=== PATIENT | male | born 1955 | race Caucasian/White ===

== ENCOUNTER 2017-07-12 09:57 | Emergency (ER) | payer MEDICARE, MEDICAID ==
[~2017-07-12] VITALS: Ht 172.7 cm; Wt 90.7 kg
[~2017-07-12 09:57] MED LIST: ALBU8.5H8 INH; BENA20TA2 PO; HYDR25TA4 PO; INSU100V10 SQ; INSU100V3 SQ; METF500T PO; RIVA10TA PO; SITA50TA PO
[2017-07-12 10:54] LABS: BASOPHILS # (AUTO) 0.1 /CMM (0.0-0.2); BASOPHILS % (AUTO) 0.8 % (0.0-2.0); EOSINOPHILS # (AUTO) 0.3 /CMM (0.0-0.7); EOSINOPHILS % (AUTO) 3.2 % (0.0-6.0); HEMATOCRIT 37 % (39-51); HEMOGLOBIN 12.5 g/dL (13.5-17.5); LYMPHOCYTES # (AUTO) 1.3 /CMM (0.8-4.8); LYMPHOCYTES % (AUTO) 16.3 % (20.0-44.0); MEAN CORPUSCULAR HEMOGLOBIN 30 PG (26.0-33.0); MEAN CORPUSCULAR HGB CONC 34 g/dl (31.0-36.0); MEAN CORPUSCULAR VOLUME 90 fL (80-96); MONOCYTES # (AUTO) 0.8 /CMM (0.1-1.30); MONOCYTES % (AUTO) 9.6 % (2.0-12.0); NEUTROPHILS # (AUTO) 5.4 /CMM (1.8-8.9); NEUTROPHILS % (AUTO) 70.1 % (43.0-81.0); PLATELET COUNT (AUTO) 231 /CMM (150-450); RDW COEFFICIENT OF VARIATION 12.5 (11.5-15.0); RED BLOOD CELL COUNT(AUTO) 4.11 MIL/uL (4.5-6.0); WHITE BLOOD COUNT (AUTO) 7.9 K/uL (4.3-11.0)
[2017-07-12 11:03] LABS: CALCIUM, SERUM 9.3 mg/dL (8.5-10.1); CARBON DIOXIDE 26 mmol/L (21-32); CHLORIDE 104 mmol/L (98-107); CREATININE 1.3 mg/dL (0.6-1.3); GLUCOSE 91 mg/dL (74-106); POTASSIUM 3.7 mmol/L (3.5-5.1); SODIUM SERUM 139 mmol/L (136-145); UREA NITROGEN, BLOOD 17 mg/dL (7-18)
[2017-07-12 11:09] LABS: ACETAMINOPHEN 0 ug/ml (10-30); ALANINE AMINOTRANSFERASE 22 U/L (12-78); ALBUMIN 4.3 g/dL (3.4-5.0); ALCOHOL, BLOOD < 3 mg/dL (0-0); ALKALINE PHOSPHATASE 83 U/L (46-116); ASPARTATE AMINOTRANSFERASE 25 U/L (15-37); BILIRUBIN,DIRECT 0.2 mg/dL (0.0-0.2); BILIRUBIN,TOTAL 0.6 mg/dL (0.2-1.0); SALICYLATE 1.9 mg/dL (2.8-20.0)
[2017-07-12 11:13] LABS: APPEARANCE,URINE Clear (CLEAR); BILIRUBIN,URINE Negative (NEGATIVE); BLOOD, URINE Trace-intact Ery/uL (NEGATIVE); COLOR,URINE Yellow (YELLOW); KETONES,URINE Negative (NEGATIVE); LEUKOCYTE ESTERASE ,URINE Negative (NEGATIVE); NITRITE, URINE Negative (NEGATIVE); PH,URINE 5.5 (5.0-8.0); PROTEIN,URINE Negative (NEGATIVE); UGLUCOSE Negative (NEGATIVE); UROBILINOGEN,URINE 0.2 EU/dL (0.2)
[2017-07-12 11:20] LABS: BACTERIA,URINE None seen /HPF (None Seen); SQUAMOUS EPITHELIAL CELL,UR Few /HPF (None Seen); WBC,URINE 0-2 /HPF (0-3)
--- NOTE | 2017-07-12 11:20 | NUR ---
FOR PSYCH EVALUATION, DENIES SI/HI, DENIES AUDITORY OR VISUAL, HALLUCINATION, NAD NOTED, VSS, RESP EVEN AND UNLABORED. WAITING FOR CRISIS NURSE EVAL.
--- NOTE | 2017-07-12 11:51 | NUR ---
MARGRET WAS CALLED AT 1150 FOR PSYCH EVAL
[2017-07-12] MEDS ORDERED: diphenhydrAMINE HCL 50 MG/ML VIAL IV ONE (12:00)
[2017-07-12] MEDS ORDERED: diphenhydrAMINE HCL 50 MG CAPSULE ONE (12:06)
--- NOTE | 2017-07-12 13:30 | NUR ---
CONTACT NUMBER FOR SISTER, ABILIO DURHAM ( )
[2017-07-12 15:06] VITALS: BP 135/70
--- NOTE | 2017-07-12 15:07 | NUR ---
Patient discharged to home in stable condition. Written and verbal after care instructions given. Patient verbalizes understanding of instruction.
== END 2017-07-12 15:10 | disposition home or self-care (01) ==
LOC: ER 10:03
DX: F31.9 Bipolar disorder, unspecified (principal); E11.9 Type 2 diabetes mellitus without complications; I10 Essential (primary) hypertension; Z79.4 Long term (current) use of insulin; Z85.038 Personal history of other malignant neoplasm of large intestine; Z88.8 Allergy status to other drugs, medicaments and biological substances
CPT/HCPCS: 36415; 80048; 80076; 80305; 80329; 81001; 85025; 99284; A4606; G0480 ×2; Q0163; 81000-TC; Z7610

== ENCOUNTER 2018-06-13 18:20 | Emergency (ER) | payer MEDICAID, MEDICARE, OTHER ==
[~2018-06-13] VITALS: Ht 172.7 cm; Wt 94.8 kg
[2018-06-13 18:20] VITALS: BP 137/70
[~2018-06-13 18:20] MED LIST changes: -BENA20TA2 PO; +BENA20TA9 PO
== END 2018-06-13 20:58 | disposition home or self-care (01) ==
LOC: ER 18:21
DX: J40 Bronchitis, not specified as acute or chronic (principal); F41.9 Anxiety disorder, unspecified; I10 Essential (primary) hypertension; E11.9 Type 2 diabetes mellitus without complications; Z76.0 Encounter for issue of repeat prescription; Z86.718 Personal history of other venous thrombosis and embolism; Z85.038 Personal history of other malignant neoplasm of large intestine; Z87.891 Personal history of nicotine dependence; Z88.3 Allergy status to other anti-infective agents; Z79.4 Long term (current) use of insulin
CPT/HCPCS: 99284; A4606

== ENCOUNTER 2018-07-04 18:13 | Emergency (ER) | payer MEDICARE, OTHER ==
[~2018-07-04] VITALS: Ht 167.6 cm; Wt 96.2 kg
[2018-07-04 18:19] VITALS: BP 140/71
== END 2018-07-04 19:41 | disposition home or self-care (01) ==
LOC: ER 18:14
DX: J44.9 Chronic obstructive pulmonary disease, unspecified (principal); I10 Essential (primary) hypertension; E11.9 Type 2 diabetes mellitus without complications; R45.1 Restlessness and agitation; F17.200 Nicotine dependence, unspecified, uncomplicated; Z76.0 Encounter for issue of repeat prescription; Z85.038 Personal history of other malignant neoplasm of large intestine; Z88.8 Allergy status to other drugs, medicaments and biological substances; Z79.4 Long term (current) use of insulin
CPT/HCPCS: 71046; 99283; A4606

== ENCOUNTER 2018-08-12 12:43 | Inpatient (IN) | payer MEDICARE, MEDICAID ==
[~2018-08-12] VITALS: Ht 170.2 cm; Wt 104.3 kg
[2018-08-12] MEDS ORDERED: SENN-168 PO (12:58)
[2018-08-12] MEDS ORDERED: ACET-2605 PO (12:58)
[2018-08-12] MEDS ORDERED: NA P133E RC (12:58)
[2018-08-12] MEDS ORDERED: OMEP40CA37 PO (12:58)
[2018-08-12] MEDS ORDERED: METO-295 PO (12:58)
[2018-08-12] MEDS ORDERED: TOPI50TA24 PO (12:58)
[2018-08-12] MEDS ORDERED: ATOR40TA PO (12:58)
[2018-08-12] MEDS ORDERED: GABA-534 PO (12:58)
[2018-08-12] MEDS ORDERED: DIPH25CA6 PO (12:58)
[2018-08-12] MEDS ORDERED: BLOO-668 IN (12:58)
[2018-08-12] MEDS ORDERED: ACET-868 PO (12:58)
[2018-08-12] MEDS ORDERED: NIAC500T2 PO (12:58)
[2018-08-12] MEDS ORDERED: AMLO5TAB9 PO (12:58)
[2018-08-12] MEDS ORDERED: BISA10SU8 RC (12:58)
[2018-08-12] MEDS ORDERED: ASPIRIN 81 MG TAB.CHEW PO ONE (13:00)
[2018-08-12] MEDS ORDERED: ASPIRIN 81 MG TAB.CHEW ONE (13:01)
[2018-08-12 13:11] LABS: BASOPHILS % (AUTO) 0.3 % (0.0-2.0); EOSINOPHILS % (AUTO) 4.2 % (0.0-6.0); HEMATOCRIT 38 % (39-51); HEMOGLOBIN 12.8 g/dL (13.5-17.5); LYMPHOCYTES # (AUTO) 1.6 /CMM (0.8-4.8); MEAN CORPUSCULAR HGB CONC 34 g/dl (31.0-36.0); MEAN CORPUSCULAR VOLUME 89 fL (80-96); MONOCYTES # (AUTO) 0.7 /CMM (0.1-1.30); MONOCYTES % (AUTO) 8.6 % (2.0-12.0); NEUTROPHILS # (AUTO) 5.3 /CMM (1.8-8.9); NEUTROPHILS % (AUTO) 66.9 % (43.0-81.0); PLATELET COUNT (AUTO) 206 /CMM (150-450); RED BLOOD CELL COUNT(AUTO) 4.23 MIL/uL (4.5-6.0)
[2018-08-12 13:20] LABS: CALCIUM, SERUM 9.9 mg/dL (8.5-10.1); CARBON DIOXIDE 23 mmol/L (21-32); CHLORIDE 105 mmol/L (98-107); CREATININE 1.3 mg/dL (0.6-1.3); GLUCOSE 100 mg/dL (74-106); POTASSIUM 3.6 mmol/L (3.5-5.1); SODIUM SERUM 141 mmol/L (136-145); UREA NITROGEN, BLOOD 15 mg/dL (7-18)
[2018-08-12 13:39] LABS: ALANINE AMINOTRANSFERASE 33 U/L (12-78); ALBUMIN 4.4 g/dL (3.4-5.0); ALKALINE PHOSPHATASE 104 U/L (46-116); ASPARTATE AMINOTRANSFERASE 22 U/L (15-37); BILIRUBIN,DIRECT 0.2 mg/dL (0.0-0.2); BILIRUBIN,TOTAL 0.6 mg/dL (0.2-1.0); TOTAL PROTEIN, SERUM 7.6 g/dL (6.4-8.2)
[2018-08-12] MEDS ORDERED: MAG HYDROX/AL HYDROX/SIMETH 30 ML UDC PO PRN (15:30)
[2018-08-12] MEDS ORDERED: HYDROCODONE/APAP 5/325MG 1 EACH TABLET PO PRN (15:30)
[2018-08-12] MEDS ORDERED: Z GUARD REMEDY 2 OZ OINT TP PRN (15:30)
[2018-08-12] MEDS ORDERED: NA PHOS,M-B/NA PHOS,DI-BA 1 EA ENEMA RC PRN (15:30)
[2018-08-12] MEDS ORDERED: ACETAMINOPHEN 325 MG TABLET PO PRN (15:30)
[2018-08-12] MEDS ORDERED: MAGNESIUM HYDROXIDE 30 ML UDC PO PRN (15:30)
[2018-08-12] MEDS ORDERED: ZOLPIDEM TARTRATE 5 MG TABLET PO PRN (15:30)
[2018-08-12] MEDS ORDERED: BISACODYL SUPP (10 MG) 10 MG/SUPP.RECT SUPP.RECT RC PRN (15:30)
[2018-08-12] MEDS ORDERED: ONDANSETRON HCL/PF 4 MG/2 ML VIAL IVP PRN (15:30)
[2018-08-12 15:44] VITALS: BP 123/77
[2018-08-12] MEDS: IV NS 0.9% 1,000 ML IV PRN (15:59)
[2018-08-12] MEDS ORDERED: GABAPENTIN 300 MG CAPSULE PO SCH (17:00)
[2018-08-12] MEDS: METOCLOPRAMIDE HCL 10 MG TABLET PO SCH ×2 (17:30→21:26)
[2018-08-12] MEDS: TOPIRAMATE 25 MG TABLET PO SCH (17:54)
[2018-08-12] MEDS: RIVAROXABAN 10 MG TABLET PO SCH (17:56)
[2018-08-12] MEDS: TRAMADOL HCL 50 MG TABLET PO PRN (18:50)
[2018-08-12] MEDS ORDERED: MINERAL OIL/PETROL OINT 396 GM JAR TP PRN (19:00)
[2018-08-12] MEDS ORDERED: DEXTROSE 50%-WATER 50 ML DISP.SYRIN IV PRN (19:00)
[2018-08-12] MEDS: LITHIUM CARBONATE 150 MG CAPSULE PO SCH (19:00)
[2018-08-12] MEDS: BLOOD SUGAR DIAGNOSTIC 1 EACH STRIP VI SCH ×2 (19:00→21:29)
[2018-08-12] MEDS: OXCARBAZEPINE 150 MG TABLET PO SCH (19:13)
[2018-08-12] MEDS: LamoTRIgine 25 MG TABLET PO SCH ×2 (19:13→21:24)
[2018-08-12 20:00] VITALS: BP 128/78
[2018-08-12] MEDS: ATORVASTATIN 40 MG TABLET PO SCH (21:24)
[2018-08-12] MEDS: OLANZAPINE 10 MG TABLET PO SCH (21:25)
[2018-08-12] MEDS: SENNOSIDES 8.6 MG TABLET PO SCH (21:26)
[2018-08-12] MEDS: *INSULIN REGULAR(HUMULIN R)HUM 100 UNIT/ML VIAL SQ PRN (21:34)
[2018-08-13] VITALS: BP 120/83
[2018-08-13 03:30] VITALS: BP 147/71
[2018-08-13] MEDS: IV NS 0.9% 1,000 ML IV PRN (04:42)
[2018-08-13] MEDS: INSULIN REGULAR, HUMAN 100 UNIT/ML 3 ML VIAL SQ PRN (06:34)
[2018-08-13] MEDS: BLOOD SUGAR DIAGNOSTIC 1 EACH STRIP VI SCH ×4 (06:35→21:50)
[2018-08-13] MEDS: TRAMADOL HCL 50 MG TABLET PO PRN ×2 (07:08→16:48)
[2018-08-13 07:45] LABS: BASOPHILS % (AUTO) 0.4 % (0.0-2.0); EOSINOPHILS % (AUTO) 7.8 % (0.0-6.0); HEMATOCRIT 38 % (39-51); HEMOGLOBIN 12.7 g/dL (13.5-17.5); LYMPHOCYTES % (AUTO) 23.6 % (20.0-44.0); MEAN CORPUSCULAR HGB CONC 34 g/dl (31.0-36.0); MEAN CORPUSCULAR VOLUME 91 fL (80-96); MONOCYTES % (AUTO) 10.1 % (2.0-12.0); NEUTROPHILS # (AUTO) 2.9 /CMM (1.8-8.9); NEUTROPHILS % (AUTO) 58.1 % (43.0-81.0); PLATELET COUNT (AUTO) 183 /CMM (150-450); RED BLOOD CELL COUNT(AUTO) 4.16 MIL/uL (4.5-6.0)
[2018-08-13 07:46] LABS: LYMPHOCYTES # (AUTO) 1.2 /CMM (0.8-4.8); MONOCYTES # (AUTO) 0.5 /CMM (0.1-1.30)
[2018-08-13 07:59] LABS: CALCIUM, SERUM 9.4 mg/dL (8.5-10.1); CREATININE 1.4 mg/dL (0.6-1.3); PHOSPHORUS 3.7 mg/dL (2.5-4.9); POTASSIUM 3.6 mmol/L (3.5-5.1)
[2018-08-13 08:00] VITALS: BP 120/73
[2018-08-13] MEDS: ASPIRIN 81 MG TAB.CHEW PO SCH (08:50)
[2018-08-13] MEDS: AMLODIPINE BESYLATE 5 MG TABLET PO SCH (08:50)
[2018-08-13] MEDS: METFORMIN 500 MG TABLET PO SCH ×2 (08:50→16:39)
[2018-08-13] MEDS: TOPIRAMATE 25 MG TABLET PO SCH ×2 (08:51→16:39)
[2018-08-13] MEDS: PANTOPRAZOLE 40 MG TABLET.DR PO SCH (08:51)
[2018-08-13] MEDS: OXCARBAZEPINE 150 MG TABLET PO SCH ×2 (08:51→16:39)
[2018-08-13] MEDS: METOCLOPRAMIDE HCL 10 MG TABLET PO SCH ×4 (08:51→21:40)
[2018-08-13] MEDS: LamoTRIgine 25 MG TABLET PO SCH ×2 (08:51→21:40)
[2018-08-13] MEDS: LITHIUM CARBONATE 150 MG CAPSULE PO SCH (08:51)
[2018-08-13] MEDS: GABAPENTIN 400 MG CAPSULE PO SCH ×3 (08:51→16:44)
[2018-08-13] MEDS: CITALOPRAM HYDROBROMIDE 20 MG TABLET PO SCH (08:53)
[2018-08-13] MEDS ORDERED: METFORMIN 500 MG TABLET PO SCH (09:00)
[2018-08-13] MEDS: diphenhydrAMINE HCL 25 MG CAPSULE PO PRN (14:02)
[2018-08-13 16:00] VITALS: BP 120/69
[2018-08-13] MEDS: RIVAROXABAN 10 MG TABLET PO SCH (16:43)
[2018-08-13] MEDS ORDERED: LITHIUM CARBONATE (300 MG CAP) 300 MG CAPSULE PO SCH (18:00)
[2018-08-13] MEDS ORDERED: IOHEXOL-350 100 ML VIAL IV ONE (19:21)
[2018-08-13] MEDS ORDERED: CT SWABBABLE VALVE TRANS SET 1 EA INFUS.SET MC ONE (19:21)
[2018-08-13] MEDS ORDERED: IV NS 0.9% 250 ML IV ONE (19:21)
[2018-08-13 20:00] VITALS: BP 115/61
[2018-08-13] MEDS: OLANZAPINE 10 MG TABLET PO SCH (21:40)
[2018-08-13] MEDS: ATORVASTATIN 40 MG TABLET PO SCH (21:40)
[2018-08-13] MEDS: SENNOSIDES 8.6 MG TABLET PO SCH ×2 (21:40→21:58)
[2018-08-13] MEDS: *INSULIN REGULAR(HUMULIN R)HUM 100 UNIT/ML VIAL SQ PRN (21:57)
[2018-08-14] MEDS: TRAMADOL HCL 50 MG TABLET PO PRN ×2 (03:50→09:43)
[2018-08-14] MEDS: BLOOD SUGAR DIAGNOSTIC 1 EACH STRIP VI SCH ×2 (06:33→12:06)
[2018-08-14] MEDS: INSULIN REGULAR, HUMAN 100 UNIT/ML 3 ML VIAL SQ PRN (06:35)
[2018-08-14] MEDS: METOCLOPRAMIDE HCL 10 MG TABLET PO SCH ×2 (07:30→12:00)
[2018-08-14 07:42] LABS: CALCIUM, SERUM 9.7 mg/dL (8.5-10.1); CREATININE 1.2 mg/dL (0.6-1.3); PHOSPHORUS 4.6 mg/dL (2.5-4.9); POTASSIUM 4.5 mmol/L (3.5-5.1)
[2018-08-14 08:00] VITALS: BP 158/77
[2018-08-14] MEDS: LITHIUM CARBONATE 150 MG CAPSULE PO SCH (09:00)
[2018-08-14 09:28] VITALS: BP 158/77
[2018-08-14] MEDS: LamoTRIgine 25 MG TABLET PO SCH (09:28)
[2018-08-14] MEDS: GABAPENTIN 400 MG CAPSULE PO SCH ×2 (09:28→13:30)
[2018-08-14] MEDS: CITALOPRAM HYDROBROMIDE 20 MG TABLET PO SCH (09:28)
[2018-08-14] MEDS: ASPIRIN 81 MG TAB.CHEW PO SCH (09:28)
[2018-08-14] MEDS: PANTOPRAZOLE 40 MG TABLET.DR PO SCH (09:28)
[2018-08-14] MEDS: AMLODIPINE BESYLATE 5 MG TABLET PO SCH (09:28)
[2018-08-14] MEDS: METFORMIN 500 MG TABLET PO SCH (09:29)
[2018-08-14] MEDS: OXCARBAZEPINE 150 MG TABLET PO SCH (09:29)
[2018-08-14] MEDS: TOPIRAMATE 25 MG TABLET PO SCH (09:30)
[2018-08-14] MEDS: diphenhydrAMINE HCL 25 MG CAPSULE PO PRN (09:36)
== END 2018-08-14 15:30 | DRG 205 ==
LOC: ER 13:13 → TELE1 14:35 → TELE 08-13 03:22 → MED 08-13 13:04
PROVIDERS: ADMIT Internal Medicine; ATTEND Nurse Practitioner Acute Care
DX: M94.0 Chondrocostal junction syndrome [Tietze] (principal); N17.0 Acute kidney failure with tubular necrosis; I25.10 Atherosclerotic heart disease of native coronary artery without angina pectoris; F31.9 Bipolar disorder, unspecified; I10 Essential (primary) hypertension; K21.9 Gastro-esophageal reflux disease without esophagitis; E11.43 Type 2 diabetes mellitus with diabetic autonomic (poly)neuropathy; K31.84 Gastroparesis; L85.3 Xerosis cutis; E78.5 Hyperlipidemia, unspecified; I71.2 Thoracic aortic aneurysm, without rupture; Z86.718 Personal history of other venous thrombosis and embolism; Z79.01 Long term (current) use of anticoagulants; F17.200 Nicotine dependence, unspecified, uncomplicated; N40.0 Benign prostatic hyperplasia without lower urinary tract symptoms; W06.XXXA Fall from bed, initial encounter; Y92.122 Bedroom in nursing home as the place of occurrence of the external cause; Z79.4 Long term (current) use of insulin; Z79.899 Other long term (current) drug therapy; Z85.038 Personal history of other malignant neoplasm of large intestine
CPT/HCPCS: 36415; 71045-TC; 71100-TC; 80048-TC; 80076-TC; 82962-TC; 83735-TC; 84100-TC; 84484-TC; 85025-TC; 87081-TC; 93307-TC; G0378; J1815; J7030; J7050; J8597; Q0163; Q9967

== ENCOUNTER 2018-08-25 19:55 | Inpatient (IN) | payer MEDICARE, MEDICAID ==
[~2018-08-25] VITALS: Ht 172.7 cm; Wt 99.8 kg
[~2018-08-25 19:55] MED LIST changes: +ACET-2605 PO; +ACET-868 PO; -ALBU8.5H8 INH; +AMLO5TAB9 PO; +ATOR40TA PO; -BENA20TA9 PO; +BISA10SU8 RC; +BLOO-668 IN; +DIPH25CA6 PO; +GABA-534 PO; -HYDR25TA4 PO; -INSU100V10 SQ; -INSU100V3 SQ; +METO-295 PO; +NA P133E RC; +NIAC500T2 PO; +OMEP40CA37 PO; +SENN-168 PO; -SITA50TA PO; +TOPI50TA24 PO
[2018-08-25 21:28] LABS: BASOPHILS # (AUTO) 0.1 /CMM (0.0-0.2); BASOPHILS % (AUTO) 0.7 % (0.0-2.0); EOSINOPHILS % (AUTO) 5.3 % (0.0-6.0); HEMATOCRIT 35 % (39-51); HEMOGLOBIN 11.9 g/dL (13.5-17.5); LYMPHOCYTES % (AUTO) 25.6 % (20.0-44.0); MEAN CORPUSCULAR HGB CONC 34 g/dl (31.0-36.0); MEAN CORPUSCULAR VOLUME 89 fL (80-96); MONOCYTES # (AUTO) 0.8 /CMM (0.1-1.30); MONOCYTES % (AUTO) 9.9 % (2.0-12.0); NEUTROPHILS # (AUTO) 4.6 /CMM (1.8-8.9); NEUTROPHILS % (AUTO) 58.5 % (43.0-81.0); PLATELET COUNT (AUTO) 234 /CMM (150-450); RED BLOOD CELL COUNT(AUTO) 3.94 MIL/uL (4.5-6.0); WHITE BLOOD COUNT (AUTO) 7.9 K/uL (4.3-11.0)
--- NOTE | 2018-08-25 21:30 | NUR ---
PT PRESENTED TO THE ER WITH A C/O MEDICATION SIDE EFFECTS. PT STATED THAT HE FEELS MENTALLY UNSTABLE ON THE NEW MEDICAITON THAT HE IS TAKING. PT IS AA&O X4.
[2018-08-25 21:37] LABS: ALBUMIN 4.3 g/dL (3.4-5.0); BILIRUBIN,DIRECT 0.1 mg/dL (0.0-0.2); BILIRUBIN,TOTAL 0.5 mg/dL (0.2-1.0); CALCIUM, SERUM 8.9 mg/dL (8.5-10.1); CREATININE 1.1 mg/dL (0.6-1.3); POTASSIUM 3.6 mmol/L (3.5-5.1); SALICYLATE 0.5 mg/dL (2.8-20.0); TOTAL PROTEIN, SERUM 7.2 g/dL (6.4-8.2)
--- NOTE | 2018-08-25 21:42 | NUR ---
PT IS TRYING TO GIVE A URINE SAMPLE.
--- NOTE | 2018-08-25 21:45 | NUR ---
URINE SENT TO LAB.
[2018-08-25 23:40] LABS: APPEARANCE,URINE CLEAR (CLEAR); BILIRUBIN,URINE NEGATIVE (NEGATIVE); BLOOD, URINE TRACE-INTA Ery/uL (NEGATIVE); COLOR,URINE OTHER (YELLOW); KETONES,URINE NEGATIVE (NEGATIVE); LEUKOCYTE ESTERASE ,URINE NEGATIVE (NEGATIVE); NITRITE, URINE NEGATIVE (NEGATIVE); PROTEIN,URINE NEGATIVE (NEGATIVE); UGLUCOSE NEGATIVE (NEGATIVE); UROBILINOGEN,URINE 0.2 EU/dL (0.2)
[2018-08-25 23:55] LABS: BACTERIA,URINE Rare /HPF (None Seen); RBC,URINE 0-2 /HPF (0-2); SQUAMOUS EPITHELIAL CELL,UR Rare /HPF (None Seen); WBC,URINE 0-2 /HPF (0-3)
--- NOTE | 2018-08-26 00:55 | NUR ---
PT REC'D A SANDWICH AND A DIET COKE. PT IS TOLERATING PO WELL.
--- NOTE | 2018-08-26 02:55 | NUR ---
PT EVALUATED BY MILLICENT HALL.
--- NOTE | 2018-08-26 03:00 | NUR ---
PT IS ON A 6070 HOLD
--- NOTE | 2018-08-26 03:34 | NUR ---
CALLING REPORT TO SHAYLA CEE
[2018-08-26] MEDS ORDERED: TEMAZEPAM 7.5 MG CAPSULE PO PRN (05:00)
[2018-08-26] MEDS ORDERED: MAG HYDROX/AL HYDROX/SIMETH 30 ML UDC PO PRN (05:00)
[2018-08-26] MEDS ORDERED: MAGNESIUM HYDROXIDE 30 ML UDC PO PRN (05:00)
[2018-08-26] MEDS ORDERED: ACETAMINOPHEN 325 MG TABLET PO PRN (05:00)
--- NOTE | 2018-08-26 05:27 | NUR ---
GPS/GANG PLANK WORKMAN NOTE: A 63 YEAR OLD MALE ADMITTED FROM [facility] ON 5150 HOLD FOR DTS. PER HOLD, PATIENT REPORTED FEELING UNSAFE DUE TO SIDE EFFECTS FROM MEDICATION. HE IS FEELING UNSAFE EXPERIENCING SOME DELUSIONS THAT PEOPLE MAYBE OUT TO HURT HIM, HE BELIEVES TO BE RELATED TO MEDICATION CHANGE. FEELS ABOUT HIS SAFETY AND DOES NOT FEEL HE CAN BE SAFE ON HIS OWN. PLACED HIM IN BED, AWAKE, ALERT, ORIENTED X3-4, THOUGHT PROCESS INTACT, NO APPARENT DISTRESS NOTED. PATIENT STATED MAYTE HE IS ANGRY, IRRITABLE, PARANOID AND DELUSIONAL. SKIN CLEAR. PATIENT IS CLEAN, GOOD HYGIENE, APPROPRIATE, COOPERATIVE, CALM, SHOWS NO S/S OF ANY PAIN. LIVES ALONE. BELONGINGS INVENTORIED AND CHECKED FOR CONTRABAND. PATIENT REFUSED TO SIGN CONSENT. SPOKE TO YARA, MED RECON NEEDS TO BE DONE IN THE MORNING. SISTER ABILIO [phone] NOTIFIED OF ADMISSION. BED LOCKED AND PLACED ON LOWEST POSITION. WILL CONTINUE TO MONITOR Q 15 MINS. TO MAINTAIN SAFETY. MRSA SCREEN DONE IN ER.
--- NOTE | 2018-08-26 06:22 | NUR ---
CALLED ABILIO, (SISTER) [phone], NO ANSWER, PLEASE CALL LATER.
--- NOTE | 2018-08-26 06:32 | NUR ---
PATIENT PREFERS A NO CODE STATUS AND REQUESTING IF HE CAN TALK TO THE ATTENDING PHYSICIAN TODAY.
[2018-08-26 08:00] VITALS: BP 133/74
[2018-08-26] MEDS ORDERED: BREX2TAB PO (08:49)
[2018-08-26] MEDS ORDERED: TRAM50TA2 PO (08:49)
[2018-08-26] MEDS ORDERED: OXCA300T4 PO (08:49)
[2018-08-26] MEDS ORDERED: OLAN15TA3 PO (08:49)
--- NOTE | 2018-08-26 08:54 | NUR ---
ELECTROENCEPHALOGRAPH TECHNOLOGIST/MED RECON MED-RECON INFO OBTAINED FROM THE PATIENT, PER PATIENT "I USED TO RESIDE AT [facility]". CALLED AND SPOKE TO STAFF [facility] AND STATED THAT PATIENT WAS D/C FROM THE FACILITY 3DAYS AGO, UNABLE TO PROVIDE INFO D/T CHART IS IN MEDICAL RECORDS AND NOT ACCESSIBLE AT THIS TIME. PRIMARY NURSE MADE AWARE.
[2018-08-26] MEDS ORDERED: diphenhydrAMINE HCL 25 MG CAPSULE PO PRN (13:00)
[2018-08-26] MEDS ORDERED: METOCLOPRAMIDE HCL 10 MG TABLET PO PRN (13:00)
[2018-08-26] MEDS: GABAPENTIN 300 MG CAPSULE PO SCH ×2 (14:20→16:11)
[2018-08-26] MEDS: TRAMADOL HCL 50 MG TABLET PO PRN (14:57)
--- NOTE | 2018-08-26 14:57 | NUR ---
GPS RN NOTE: PT COMPLAINING OF GENERALIZED PAIN TRAMADOL 50 MG PO Q6 HR GIVEN PER ORDER
[2018-08-26 16:00] VITALS: BP 151/84
[2018-08-26] MEDS: OXCARBAZEPINE 150 MG TABLET PO SCH (16:11)
[2018-08-26] MEDS: RIVAROXABAN 10 MG TABLET PO SCH (16:25)
[2018-08-26] MEDS: METFORMIN 500 MG TABLET PO SCH (16:45)
[2018-08-26] MEDS: BLOOD SUGAR DIAGNOSTIC 1 EACH STRIP IN SCH (16:48)
[2018-08-26] MEDS ORDERED: OXCARBAZEPINE 150 MG TABLET PO SCH (17:00)
--- NOTE | 2018-08-26 19:30 | NUR ---
GPS RN NOTE, RECEIVED PATIENT AWAKE AND IN ROOM NO S/S OR COMPLAINTS OF PAIN AT THIS TIME. PATIENT IS DISPLAYING NO S/S OF APPARENT DISTRESS AT THIS TIME. PATIENT BREATHING IS UNLABORED WITH EQUAL RISE AND FALL OF THE CHEST. PATIENT IS ALERT AND ORIENTED X 3 ON ROOM AIR WITH A SPO2 OF 96%. PATIENT IS MED COMPLIANT, DISORGANIZED, ANXIOUS, LABILE, COOPERATIVE, AND NEEDS REORIENTATION. PATIENT DENIES SUICIDE AND HOMICIDAL IDEATIONS AT THIS TIME. PATIENT ASSISTED WITH TURNING AND REPOSITIONING Q2HR AND PRN FOR COMFORT AND CIRCULATION. PATIENT HAS NO NEEDS AT THIS TIME. PATIENT EDUCATED ON THE USE OF THE CALL MCKOY. PATIENT BED SIDE RAILS ARE UP X 2 FOR SAFETY, BED IS LOCKED AND LOW. WILL CONTINUE TO MONITOR AND MAINTAIN SAFETY Q15 MIN WITH THE HELP OF STAFF.
[2018-08-26] MEDS: OLANZAPINE 10 MG TABLET PO SCH (20:42)
[2018-08-26 21:14] VITALS: BP 114/67
[2018-08-26] MEDS: SENNOSIDES 8.6 MG TABLET PO SCH (22:18)
[2018-08-26] MEDS: ATORVASTATIN 40 MG TABLET PO SCH (22:18)
[2018-08-27 07:22] LABS: CHOLESTEROL 119 mg/dL (<200); HDL CHOLESTEROL 42 mg/dL (40-60); LDL 61 mg/dL (0-99); TRIGLYCERIDES 140 mg/dL (30-150)
[2018-08-27 07:25] LABS: ALBUMIN 4.4 g/dL (3.4-5.0); BILIRUBIN,TOTAL 0.6 mg/dL (0.2-1.0); CALCIUM, SERUM 9.6 mg/dL (8.5-10.1); CREATININE 1.1 mg/dL (0.6-1.3); POTASSIUM 4.1 mmol/L (3.5-5.1); TOTAL PROTEIN, SERUM 7.5 g/dL (6.4-8.2)
[2018-08-27 07:54] LABS: BASOPHILS % (AUTO) 0.4 % (0.0-2.0); EOSINOPHILS % (AUTO) 3.8 % (0.0-6.0); HEMATOCRIT 40 % (39-51); HEMOGLOBIN 13.7 g/dL (13.5-17.5); LYMPHOCYTES # (AUTO) 1.6 /CMM (0.8-4.8); LYMPHOCYTES % (AUTO) 17.4 % (20.0-44.0); MEAN CORPUSCULAR HGB CONC 34 g/dl (31.0-36.0); MEAN CORPUSCULAR VOLUME 90 fL (80-96); MONOCYTES # (AUTO) 0.9 /CMM (0.1-1.30); MONOCYTES % (AUTO) 9.6 % (2.0-12.0); NEUTROPHILS # (AUTO) 6.3 /CMM (1.8-8.9); NEUTROPHILS % (AUTO) 68.8 % (43.0-81.0); PLATELET COUNT (AUTO) 247 /CMM (150-450); RED BLOOD CELL COUNT(AUTO) 4.51 MIL/uL (4.5-6.0); WHITE BLOOD COUNT (AUTO) 9.1 K/uL (4.3-11.0)
[2018-08-27 08:00] VITALS: BP 127/76
[2018-08-27] MEDS: BLOOD SUGAR DIAGNOSTIC 1 EACH STRIP IN SCH ×2 (08:20→17:08)
[2018-08-27] MEDS: LORAZEPAM 0.5 MG TABLET PO PRN (08:47)
[2018-08-27] MEDS: METFORMIN 500 MG TABLET PO SCH ×2 (08:47→16:50)
[2018-08-27] MEDS: OLANZAPINE 2.5 MG TABLET PO SCH (08:48)
[2018-08-27] MEDS: AMLODIPINE BESYLATE 5 MG TABLET PO SCH (08:48)
[2018-08-27] MEDS: OXCARBAZEPINE 150 MG TABLET PO SCH (08:48)
[2018-08-27] MEDS: GABAPENTIN 300 MG CAPSULE PO SCH ×3 (08:48→16:50)
[2018-08-27] MEDS: PANTOPRAZOLE 40 MG TABLET.DR PO SCH (08:49)
--- NOTE | 2018-08-27 10:28 | NUR ---
GPS RN NOTE: RECEIVED PT AWAKE IN THE ROOM FEELING ANXIOUS ATIVAN 0.5 MG PO PRN GIVEN PT COOPERATIVE AND COMPLIANT WITH CARE WILL CONTINUE MONITORING FOR SAFETY AND BEHAVIOR Q 15 MIN
--- NOTE | 2018-08-27 13:35 | NUR ---
GPS RN NOTE: DR. SUHA Chase ORDER WOUND CONSUL FOR ITCHING HEAD ,ORDER PLACED AND CARED OUT. Addendum: 08/27/18 at 1340 by MAURICE DELANEY RN ITCHY SCALP
[2018-08-27] MEDS: TOPIRAMATE 25 MG TABLET PO SCH ×2 (15:10→20:41)
[2018-08-27 16:00] VITALS: BP 134/70
[2018-08-27] MEDS: RIVAROXABAN 10 MG TABLET PO SCH (16:49)
[2018-08-27] MEDS: OLANZAPINE 10 MG TABLET PO SCH (20:28)
[2018-08-27 20:50] VITALS: BP 129/63
[2018-08-27] MEDS: ATORVASTATIN 40 MG TABLET PO SCH (21:22)
[2018-08-27] MEDS: SENNOSIDES 8.6 MG TABLET PO SCH (21:24)
--- NOTE | 2018-08-28 02:00 | NUR ---
GPS RN NOTE RECEIVED PATIENT ALEEPING AND IN ROOM. PATIENT IS DISPLAYING NO S/S OF APPARENT DISTRESS AT THIS TIME. PATIENT BREATHING IS UNLABORED WITH SYMMETRICAL RISE AND FALL OF THE CHEST. PATIENT ASSISTED WITH TURNING AND REPOSITIONING Q2HR AND PRN FOR COMFORT AND CIRCULATION. PATIENT HAS NO NEEDS AT THIS TIME. PATIENT BED SIDE RAILS ARE UP X 2 FOR SAFETY, BED IS LOCKED AND LOW. WILL CONTINUE TO MONITOR AND MAINTAIN SAFETY Q15 MIN WITH THE HELP OF STAFF.
[2018-08-28 08:00] VITALS: BP 116/73
[2018-08-28] MEDS: BLOOD SUGAR DIAGNOSTIC 1 EACH STRIP IN SCH ×2 (08:01→16:57)
[2018-08-28] MEDS: OLANZAPINE 2.5 MG TABLET PO SCH ×2 (08:16→12:15)
[2018-08-28] MEDS: AMLODIPINE BESYLATE 5 MG TABLET PO SCH (08:16)
[2018-08-28] MEDS: GABAPENTIN 300 MG CAPSULE PO SCH ×3 (08:16→16:58)
[2018-08-28] MEDS: METFORMIN 500 MG TABLET PO SCH ×2 (08:16→16:58)
[2018-08-28] MEDS: PANTOPRAZOLE 40 MG TABLET.DR PO SCH (08:16)
[2018-08-28] MEDS: TOPIRAMATE 25 MG TABLET PO SCH ×2 (08:16→22:04)
--- NOTE | 2018-08-28 10:09 | NUR ---
WOUND CARE CONSULT: PT SEEN FOR SCALP ITCHING. PT NOTED TO HAVE SOME FLAKES ON HIS SCALP. DEFER TO MD. 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 DEFER TO MD FOR HAND SKIN CONDITION AND SCALP CONDITION. PT HAS DRY SKIN ON ARMS AND LEGS. RECOMMENDATIONS MADE FOR SKIN CARE OF EXTREMITIES. DISCUSSED WITH NURSING STAFF. PT CONTINENT AND AMBULATORY. WILL SEE PRN. MD IN AGREEMENT WITH PLAN OF CARE.
[2018-08-28] MEDS ORDERED: MINERAL OIL/PETROLATUM,WHITE 120 GM JAR TP PRN (10:30)
[2018-08-28] MEDS: TRAMADOL HCL 50 MG TABLET PO PRN ×2 (10:34→18:08)
--- NOTE | 2018-08-28 10:34 | NUR ---
NURSING NOTE: PT C/O LEFT SHOULDER AND ARM PAIN, 8/10 PAIN. REQUESTING PAIN MEDS. ADMINISTERED TRAMADOL 50MG PO PER MD ORDER. WILL CONTINUE TO MONITOR.
[2018-08-28 16:00] VITALS: BP 132/69
--- NOTE | 2018-08-28 16:15 | NUR ---
LUISA contacted Davy ([phone]) from [facility] who stated that they are currently unsure about whether or not the pt can return. LUISA stated that she would follow up.
--- NOTE | 2018-08-28 16:17 | NUR ---
SW spoke to the pt in his room and he stated that he would like to save his money and find an apartment in September. He stated that he would like the SW to find temporary placement in case [facility] does not accept him back.
[2018-08-28] MEDS: RIVAROXABAN 10 MG TABLET PO SCH (16:59)
[2018-08-28 19:56] VITALS: BP 108/63
[2018-08-28] MEDS: OLANZAPINE 10 MG TABLET PO SCH (20:18)
[2018-08-28] MEDS: ATORVASTATIN 40 MG TABLET PO SCH (22:04)
[2018-08-28] MEDS: SENNOSIDES 8.6 MG TABLET PO SCH (22:06)
[2018-08-29 08:00] VITALS: BP 116/65
[2018-08-29] MEDS: OLANZAPINE 2.5 MG TABLET PO SCH ×2 (08:20→12:05)
[2018-08-29] MEDS: GABAPENTIN 300 MG CAPSULE PO SCH ×3 (08:20→16:25)
[2018-08-29] MEDS: METFORMIN 500 MG TABLET PO SCH ×2 (08:20→16:25)
[2018-08-29] MEDS: PANTOPRAZOLE 40 MG TABLET.DR PO SCH (08:20)
[2018-08-29] MEDS: TOPIRAMATE 25 MG TABLET PO SCH ×2 (08:20→21:33)
[2018-08-29] MEDS: AMLODIPINE BESYLATE 5 MG TABLET PO SCH (08:22)
[2018-08-29] MEDS: BLOOD SUGAR DIAGNOSTIC 1 EACH STRIP IN SCH ×2 (09:02→17:36)
--- NOTE | 2018-08-29 10:15 | NUR ---
SW spoke to the pt in his room and he stated that he no longer wants to be in a shelter facility and that he would like to be placed in an independent living that is affordable. Pt stated that he does not like feeling as if he is imprisoned and as if he cannot make his own decisions in his placements.
[2018-08-29] MEDS: TRAMADOL HCL 50 MG TABLET PO PRN (11:35)
[2018-08-29] MEDS ORDERED: FIXODENT 1 EA TUBE MM PRN (14:30)
--- NOTE | 2018-08-29 14:52 | NUR ---
Group note: Pt attended a group session on 08/29/18 at 11AM discussing the topic of what their goals are for when they are in the hospital and once they are discharged. S: Pt stated, My goal for when I am released from the hospital would be that I would have connections to a mental health service whether that is a clinic or a psychiatrist. O: Pt was present during the group session and was cooperative. Pt appeared to be in a euthymic mood and presented with a calm affect. Pt maintained appropriate eye contact and her tone of voice appeared to be very calm and pleasant throughout the group. A: Pt understood that he needs to held accountable for his medications if he wants to be able to return to his job. P: Pt will continue milieu treatment and medication stabilization.
--- NOTE | 2018-08-29 15:42 | NUR ---
LUISA faxed a referral to [facility] with attention to Ashvin to the fax number: [phone].
[2018-08-29 16:00] VITALS: BP 137/69
--- NOTE | 2018-08-29 16:17 | NUR ---
Initial Discharge Plan: Pt currently resides at [facility] located at [address] [place], [place] [id number]; ([phone]). Per pt, he does not want to return there and would like to be placed in an independent living. LUISA will work with the pt and the MD regarding appropriate discharge planning for the pt. SW will form a safe and proper discharge.
--- NOTE | 2018-08-29 16:18 | NUR ---
LUISA called the pt's sister, Bailey ([phone]), and informed her that the pt would like an independent living placement and she stated that she would keep the pt's sister involved.
[2018-08-29] MEDS: RIVAROXABAN 10 MG TABLET PO SCH (16:25)
[2018-08-29 20:15] VITALS: BP 137/76
[2018-08-29] MEDS: OLANZAPINE 10 MG TABLET PO SCH (21:33)
[2018-08-29] MEDS: ATORVASTATIN 40 MG TABLET PO SCH (21:33)
[2018-08-29] MEDS: SENNOSIDES 8.6 MG TABLET PO SCH (21:33)
[2018-08-30 08:00] VITALS: BP 117/80
[2018-08-30] MEDS: BLOOD SUGAR DIAGNOSTIC 1 EACH STRIP IN SCH ×2 (08:02→17:21)
[2018-08-30] MEDS: OLANZAPINE 2.5 MG TABLET PO SCH ×2 (08:50→12:12)
[2018-08-30] MEDS: GABAPENTIN 300 MG CAPSULE PO SCH ×3 (08:50→16:59)
[2018-08-30] MEDS: METFORMIN 500 MG TABLET PO SCH ×2 (08:50→16:59)
[2018-08-30] MEDS: PANTOPRAZOLE 40 MG TABLET.DR PO SCH (08:50)
[2018-08-30] MEDS: TOPIRAMATE 25 MG TABLET PO SCH ×2 (08:51→21:17)
[2018-08-30] MEDS: AMLODIPINE BESYLATE 5 MG TABLET PO SCH (08:51)
--- NOTE | 2018-08-30 14:53 | NUR ---
RN-CO: THE COURT FOUND, THERE IS NOT A PROBABLE CAUSE TO BELIEVE THAT THE CLIENT A RESULT OF MENTAL DISORDER IS A DANGER TO HIMSELF. PATIENT HOWEVER WILLING TO SIGN VOLUNTARY STAY IN THE HOSPITAL.
[2018-08-30 16:00] VITALS: BP 161/85
[2018-08-30] MEDS: RIVAROXABAN 10 MG TABLET PO SCH (17:01)
[2018-08-30 17:55] VITALS: BP 143/82
[2018-08-30] MEDS: OLANZAPINE 10 MG TABLET PO SCH (19:47)
[2018-08-30 20:00] VITALS: BP 102/62
[2018-08-30] MEDS: ATORVASTATIN 40 MG TABLET PO SCH (21:13)
[2018-08-30] MEDS: SENNOSIDES 8.6 MG TABLET PO SCH (21:13)
[2018-08-31] MEDS: LORAZEPAM 0.5 MG TABLET PO PRN (06:02)
[2018-08-31 08:00] VITALS: BP 136/77
[2018-08-31] MEDS: METFORMIN 500 MG TABLET PO SCH (08:11)
[2018-08-31] MEDS: PANTOPRAZOLE 40 MG TABLET.DR PO SCH (08:11)
[2018-08-31 08:12] VITALS: BP 136/77
[2018-08-31] MEDS: GABAPENTIN 300 MG CAPSULE PO SCH ×2 (08:12→12:00)
[2018-08-31] MEDS: AMLODIPINE BESYLATE 5 MG TABLET PO SCH (08:12)
[2018-08-31] MEDS: BLOOD SUGAR DIAGNOSTIC 1 EACH STRIP IN SCH (08:14)
[2018-08-31] MEDS: TOPIRAMATE 25 MG TABLET PO SCH (08:16)
[2018-08-31] MEDS: OLANZAPINE 2.5 MG TABLET PO SCH ×2 (08:16→12:00)
--- NOTE | 2018-08-31 10:23 | NUR ---
SW called the pt's sister, Bailey ([phone]), and left her a message stating that the pt is going to be discharged today to [facility] located at [address] [place] [address]; ([phone]). LUISA stated that she may call back if she has any questions or concerns.
--- NOTE | 2018-08-31 13:30 | NUR ---
GPS DISCHARGE NOTE: PT DISCHARGE TO [facility] LOCATED AT [id number] [place] [id number]. PT IN STABLE CONDITION , NO S/S DISTRESS NOTED, VSS, PT AMBULATORY WITH ASSIST,PT DENIES SI/HI, CONFUSED , CALM . COMPLAINT WITH MEDICATIONS AND TX. WAS SEEN BY Ember CANTRELL . EXIT CARE DONE, PRINTED, PT REFUSED TO SIGN REFUSED SKIN ASSESSMENT. DR TRAY Chase ORDER TO DC TP WITH CONTINUE MEDICATIONS. REPORT GIVEN FACILITY SHAYLA ROLDAN.ALL BELONGINGS RETURNED TO PT.
--- NOTE | 2018-08-31 14:55 | NUR ---
Ashvin ([phone]) from [facility] contacted the SW today and informed her that the pt was accepted to [facility] located at [address] [place] [address]; ([phone]).
--- NOTE | 2018-08-31 15:04 | NUR ---
LUISA informed the pt about his discharge plan and provided him with the address as well as the phone number of the facility. He stated that he was grateful and that he is content about leaving the hospital today.
--- NOTE | 2018-08-31 15:05 | NUR ---
Pt asked to speak to the SW and then stated that he did not want to go to the Independent Living that accepted him and he was unable to provide the SW with a reason. He stated that he would prefer to stay in the hospital longer or be placed in a intermediate facility. SW stated that she would look into alternative placement options after lunch.
--- NOTE | 2018-08-31 15:06 | NUR ---
Pt asked to speak to the SW once again and stated that he would like to be placed at [facility] where he was a patient before and where he feel like he did well. SW stated that she will send a referral for him.
--- NOTE | 2018-08-31 15:08 | NUR ---
LUISA faxed a referral to [facility] with attention to Jamilah to the fax number: [phone].
--- NOTE | 2018-08-31 15:09 | NUR ---
Pt asked to speak to the SW after he spoke to his psychiatrist, Dr. Keyes, and he stated that he would go to the Independent Living that accepted him. He stated that he will give the placement a fair opportunity. Pt stated that he still wanted to be discharged today and then stated that his psychiatrist would like that too.
--- NOTE | 2018-08-31 15:10 | NUR ---
Pt asked the SW for homeless halfway referrals before he discharged "just in case" the pt does not feel comfortable at the independent living facility. SW provided with all of the resources that she had including food martinez and places for the pt to take showers.
--- NOTE | 2018-08-31 15:14 | NUR ---
GPS INSPECTOR HEALTH CARE FACILITIES NOTE: PT DISCHARGE TO TO [facility] LOCATED AT [address] [place] [address].PT LEFT VIA A TAXI, IN STABLE CONDITION, NO S/S DISTRESS NOTED, VSS, PT DENIES SUICIDAL AND HOMICIDAL IDEATION , DENIES HEARING VOICED VISUAL AND AUDITORY HALLUCINATIONS. EXIT CARE DONE PRINTED, SIGN, AND GIVEN TO PT. PT SKIN INTACT AND CLEAN. DR STEELE AND DR FRANKS SEEN PT, WITH PRESCRIPTIONS GIVEN AND EXPLAIN TO PT. ALL BELONGINGS AND VALUABLES RETURNED TO PATIENT.
--- NOTE | 2018-08-31 15:15 | NUR ---
Discharge Note: Pt was discharged to [facility] located at [address] [place] [address]; ([phone]). Pt was transported via taxi around 3pm. Pt's sister, Bailey ([phone]), was notified of the placement. Upon discharge, the pt appeared to be in a euthymic mood and presented with a distressed affect. Pt denied both suicidal and homicidal ideation as well as auditory and visual hallucinations. Pt was provided with homeless long-term referrals, food martinez, hot meals, showers, mental health and medical health clinics and substance abuse referrals. Pt was referred to [facility] for psychiatric services located at [address] [place] [address]; and to [facility] for medical services located at [address] [place], [place] [address], [place] [address]; .
== END 2018-08-31 15:00 | DRG 885 ==
LOC: ER 19:58 → GPS 08-26 03:32
PROVIDERS: ADMIT Psychiatry & Neurology Psychosomatic Medicine
DX: F25.0 Schizoaffective disorder, bipolar type (principal); I45.2 Bifascicular block; E78.5 Hyperlipidemia, unspecified; K21.9 Gastro-esophageal reflux disease without esophagitis; I10 Essential (primary) hypertension; I25.10 Atherosclerotic heart disease of native coronary artery without angina pectoris; E11.9 Type 2 diabetes mellitus without complications; Z85.038 Personal history of other malignant neoplasm of large intestine; Z86.718 Personal history of other venous thrombosis and embolism; N40.0 Benign prostatic hyperplasia without lower urinary tract symptoms; F32.9 Major depressive disorder, single episode, unspecified; F29 Unspecified psychosis not due to a substance or known physiological condition
CPT/HCPCS: 36415; 80048-TC; 80053-TC; 80061-TC; 80076-TC; 80305; 81000-TC; 82962-TC; 85025-TC; 87081-TC; G0480

== ENCOUNTER 2018-09-02 19:00 | Inpatient (IN) | payer MEDICARE, MEDICAID ==
[~2018-09-02] VITALS: Ht 167.6 cm; Wt 99.8 kg
[~2018-09-02 19:00] MED LIST changes: -ACET-2605 PO; -ACET-868 PO; -BISA10SU8 RC; +BREX2TAB PO; -NA P133E RC; -NIAC500T2 PO; +OLAN15TA3 PO; +OXCA300T4 PO; -TOPI50TA24 PO; +TRAM50TA2 PO
[2018-09-02 19:42] VITALS: BP 126/79
[2018-09-02] MEDS ORDERED: MAGNESIUM HYDROXIDE 30 ML UDC PO PRN (20:00)
[2018-09-02] MEDS ORDERED: TEMAZEPAM 7.5 MG CAPSULE PO PRN (20:00)
[2018-09-02] MEDS ORDERED: INSULIN REGULAR, HUMAN 100 UNIT/ML 3 ML VIAL SQ PRN (21:00)
[2018-09-02] MEDS ORDERED: TRAMADOL HCL 50 MG TABLET PO PRN (21:00)
[2018-09-02] MEDS ORDERED: DEXTROSE 50%-WATER 50 ML DISP.SYRIN IV PRN (21:00)
[2018-09-02] MEDS ORDERED: diphenhydrAMINE HCL 25 MG CAPSULE PO PRN (21:00)
[2018-09-02] MEDS ORDERED: METOCLOPRAMIDE HCL 10 MG TABLET PO PRN (21:00)
[2018-09-02] MEDS: LORAZEPAM 0.5 MG TABLET PO PRN (21:04)
[2018-09-02] MEDS: BLOOD SUGAR DIAGNOSTIC 1 EACH STRIP IN SCH (21:06)
[2018-09-02] MEDS: ATORVASTATIN 40 MG TABLET PO SCH (21:17)
[2018-09-02] MEDS: SENNOSIDES 8.6 MG TABLET PO SCH (21:17)
--- NOTE | 2018-09-02 21:30 | NUR ---
GPS RN NOTE, PERFORMED ACCU-CHECK ON PATIENT WITH A BLOOD SUGAR RESULT OF 117. GAVE JUICES FOR SNACK. WILL CONTINUE TO MONITOR THIS PATIENT.
[2018-09-02 22:11] VITALS: BP 124/75
--- NOTE | 2018-09-02 22:38 | NUR ---
ADMISSION NOTES: ADMITTED THIS 63 Y/O MALE FROM [facility] ,PT. ADMITTED FOR VOLUNTARY STATUS, PT.HX OF DEPRESSION, SCHIZO AFFECTIVE DISORDERS,BIPOLAR PSYCHOSIS, PARANOID, PT. STATES I AM FEELING DEPRESED, ANXIOUS, UPON FACE TO FACE ASSESSMENT PATIENT IS A&O X-3 DEPRESSED ,COOPERTIVE PARANOIA ,EASILY AGITATED , PT.IS POOR HISTORIAN, POOR INSIGHT ,POOR JUDGEMENT ,V/S WNL, NO ACUTE DISTRESS NOTED , MD AWARE AND NOTIFIED OF THE ADMISSION , PT. SKIN ASSESSMENT DONE, PICTURES TAKEN AND PLACED IN THE CHART ,PT. CONSENT FROM SIGNED, ENCOURAGED PT. VERBALIZED ANY FEELING CONCERN TO STAFF, ORIENT TO UNIT POLICY, WILL CONTINUE TO MONITOR FOR Q15, CONTRACT FOR SAFETY AND BEHAVIOR.
[2018-09-03 07:34] LABS: BASOPHILS % (AUTO) 0.6 % (0.0-2.0); EOSINOPHILS % (AUTO) 7.2 % (0.0-6.0); HEMATOCRIT 39 % (39-51); LYMPHOCYTES # (AUTO) 1.5 /CMM (0.8-4.8); LYMPHOCYTES % (AUTO) 22.1 % (20.0-44.0); MEAN CORPUSCULAR HGB CONC 34 g/dl (31.0-36.0); MEAN CORPUSCULAR VOLUME 90 fL (80-96); MONOCYTES # (AUTO) 0.7 /CMM (0.1-1.30); MONOCYTES % (AUTO) 10.3 % (2.0-12.0); NEUTROPHILS # (AUTO) 4.2 /CMM (1.8-8.9); NEUTROPHILS % (AUTO) 59.8 % (43.0-81.0); PLATELET COUNT (AUTO) 214 /CMM (150-450); RED BLOOD CELL COUNT(AUTO) 4.28 MIL/uL (4.5-6.0)
[2018-09-03 07:46] LABS: CALCIUM, SERUM 9.2 mg/dL (8.5-10.1); CREATININE 1.1 mg/dL (0.6-1.3); PHOSPHORUS 3.5 mg/dL (2.5-4.9); POTASSIUM 4.2 mmol/L (3.5-5.1)
[2018-09-03 08:23] LABS: THYROID STIMULATING HORMONE 1.022 uIU/mL (0.358-3.74)
[2018-09-03] MEDS: BLOOD SUGAR DIAGNOSTIC 1 EACH STRIP IN SCH ×4 (08:51→22:51)
[2018-09-03] MEDS: GABAPENTIN 100 MG CAPSULE PO SCH ×2 (08:52→12:05)
[2018-09-03] MEDS: METFORMIN 500 MG TABLET PO SCH ×2 (08:52→17:10)
[2018-09-03] MEDS: AMLODIPINE BESYLATE 5 MG TABLET PO SCH (08:53)
[2018-09-03 08:57] VITALS: BP 139/74
[2018-09-03] MEDS: OXCARBAZEPINE 150 MG TABLET PO SCH ×3 (08:57→16:01)
[2018-09-03] MEDS ORDERED: Medication Not On Formulary EA (Brexpiprazole (Rexulti) 2 MG) PO SCH (09:00)
[2018-09-03] MEDS: ACETAMINOPHEN 325 MG TABLET PO PRN (12:05)
--- NOTE | 2018-09-03 12:09 | NUR ---
Psychosocial Note: I, Cheryl Shah MSW, attest to the patients previous psychosocial information dated on 08/29/18. Update On Events leading to Admission and Discharge Plan: Pt has returned to the geropsychiatric unit of the hospital within one week of his previous discharge date (08/31/18) from the [facility]. Pt is now on a voluntary status. Pt stated that he has a lot of pain in his body and that made it impossible for him to be in the right state for his previous discharge placement which was at [facility]. He stated that he was not ready to be discharged from the hospital last week. The pt appeared to be oriented x4 (time, place, self and situation). The pt appeared to be in a dysphoric mood and presented as irritable and agitated. Pt appeared to be ambulatory and appeared to have a steady gait. Pt appeared to be well groomed and appropriately dressed. SW will work with the pt, the pts family and the MD regarding appropriate discharge planning. SW will form a safe and proper discharge.
[2018-09-03] MEDS: GABAPENTIN 300 MG CAPSULE PO SCH ×2 (13:00→17:10)
--- NOTE | 2018-09-03 13:03 | NUR ---
MEDICATIONS- VERBAL MD ORDER TO D/C 400MG GABAPENTIN FROM MD Haylie STEELE. ORDERING 300MG, FIRST DOSE OF 300MG NON ADMIN R/T TO RECENT ADMIN OF 400MG, AWARE.
--- NOTE | 2018-09-03 13:29 | NUR ---
LUISA faxed a referral to [facility] to the fax number: [phone].
[2018-09-03] MEDS: TOPIRAMATE 25 MG TABLET PO SCH ×2 (15:00→21:29)
[2018-09-03] MEDS: OLANZAPINE 2.5 MG TABLET PO SCH (15:00)
[2018-09-03 16:00] VITALS: BP 123/63
[2018-09-03] MEDS: RIVAROXABAN 10 MG TABLET PO SCH (17:11)
[2018-09-03 19:48] VITALS: BP 112/61
[2018-09-03] MEDS: SENNOSIDES 8.6 MG TABLET PO SCH (21:30)
[2018-09-03] MEDS: OLANZAPINE 10 MG TABLET PO SCH (21:30)
[2018-09-03] MEDS: ATORVASTATIN 40 MG TABLET PO SCH (21:30)
[2018-09-04] MEDS: LORAZEPAM 0.5 MG TABLET PO PRN ×2 (06:38→16:06)
[2018-09-04] MEDS: ACETAMINOPHEN 325 MG TABLET PO PRN ×2 (06:38→16:09)
[2018-09-04 08:15] VITALS: BP 116/66
[2018-09-04] MEDS: GABAPENTIN 300 MG CAPSULE PO SCH ×3 (08:16→16:05)
[2018-09-04] MEDS: OLANZAPINE 2.5 MG TABLET PO SCH ×2 (08:16→13:32)
[2018-09-04] MEDS: BLOOD SUGAR DIAGNOSTIC 1 EACH STRIP IN SCH ×4 (08:16→21:38)
[2018-09-04] MEDS: AMLODIPINE BESYLATE 5 MG TABLET PO SCH (08:17)
[2018-09-04] MEDS: METFORMIN 500 MG TABLET PO SCH ×2 (08:17→16:05)
[2018-09-04] MEDS: OXCARBAZEPINE 150 MG TABLET PO SCH ×3 (08:18→16:05)
[2018-09-04] MEDS: TOPIRAMATE 25 MG TABLET PO SCH ×2 (08:19→21:21)
--- NOTE | 2018-09-04 12:15 | NUR ---
WOUND CARE CONSULT WOUND CARE RECEIVED CONSULT FOR BOTH HANDS AND FEET DRYNESS. WOUND CARE WILL DEFER CONSULT AND ALL TREATMENT PLANS TO PLASTIC SURGICAL TEAM WHO HAS BEEN NOTIFIED OF THE CONSULT. PATIENT WITH NEGRITA AT 22, WILL SEE PRN.
--- NOTE | 2018-09-04 12:30 | NUR ---
SW informed the pt that he was accepted to [facility] and will be discharged there once there is a date. Pt stated that made him really happy and gave him "purpose."
--- NOTE | 2018-09-04 12:45 | NUR ---
Ivelisse from [facility] contacted the SW and stated that he was not accepted to their facility due to his behavior and lack of insight towards his discharge plan.
--- NOTE | 2018-09-04 12:46 | NUR ---
LUISA contacted Faby from [facility] upon the request of the pt who stated that the pt was accepted upon his discharge during his last admission. She stated that he is still accepted to their facility and that he is welcome to arrive whenever he is discharged.
[2018-09-04 15:17] VITALS: BP 114/55
[2018-09-04] MEDS: RIVAROXABAN 10 MG TABLET PO SCH (16:06)
--- NOTE | 2018-09-04 17:06 | NUR ---
RN NOTE: NEW T.O. ORDER DC TRILEPTAL 300 MG PO BID ORDER PLACED AND CARED OUT
[2018-09-04 19:47] VITALS: BP 108/51
[2018-09-04] MEDS: OLANZAPINE 10 MG TABLET PO SCH (21:21)
[2018-09-04] MEDS: ATORVASTATIN 40 MG TABLET PO SCH (21:22)
[2018-09-04] MEDS: SENNOSIDES 8.6 MG TABLET PO SCH (21:22)
--- NOTE | 2018-09-04 21:38 | NUR ---
GPS RN NOTE, PERFORMED ACCU-CHECK ON PATIENT WITH A BLOOD SUGAR RESULT OF 99. GAVE JUICES FOR SNACK. WILL CONTINUE TO MONITOR THIS PATIENT.
[2018-09-04 22:07] VITALS: BP 110/62
[2018-09-05] MEDS: LORAZEPAM 0.5 MG TABLET PO PRN ×3 (04:00→17:17)
--- NOTE | 2018-09-05 07:13 | NUR ---
GPS RN NOTES: PT. RESTING IN HIS BED , DENIES ANY DISCOMFORT AT THIS TIME , ENDORSE TO ONCOMING NURSE FOR CONTINUITY OF CARE.
[2018-09-05] MEDS: BLOOD SUGAR DIAGNOSTIC 1 EACH STRIP IN SCH ×4 (07:30→22:00)
[2018-09-05 08:00] VITALS: BP 127/64
[2018-09-05] MEDS: GABAPENTIN 300 MG CAPSULE PO SCH ×3 (09:02→17:17)
[2018-09-05] MEDS: TOPIRAMATE 25 MG TABLET PO SCH ×2 (09:02→21:48)
[2018-09-05] MEDS: OLANZAPINE 2.5 MG TABLET PO SCH ×2 (09:02→12:00)
[2018-09-05] MEDS: METFORMIN 500 MG TABLET PO SCH ×2 (09:02→17:25)
[2018-09-05] MEDS: AMLODIPINE BESYLATE 5 MG TABLET PO SCH (09:07)
--- NOTE | 2018-09-05 11:47 | NUR ---
AM BG LEVEL 109 NO SS COVERAGE REQUIRED 1130 BG LEVEL 126 NO SS COVERAGE REQUIRED
--- NOTE | 2018-09-05 14:26 | NUR ---
SW met with the pt in his room and he stated that he is becoming impatient and cannot tolerate being in the hospital any longer. SW stated that he needs to stay focused on his goal about going to a SNF. She encouraged the pt to remain patient and to stay occupied so that he can focus on his goals. Pt stated that he would try his best.
--- NOTE | 2018-09-05 14:32 | NUR ---
LUISA faxed updated notes to [facility] with attention to Faby to the fax number: [phone].
[2018-09-05] MEDS: ACETAMINOPHEN 325 MG TABLET PO PRN (15:10)
[2018-09-05 16:10] VITALS: BP 106/65
--- NOTE | 2018-09-05 16:16 | NUR ---
LUISA called the pt's sister, Bailey ([phone]), and notified her of the placement to [facility] and informed her that the discharge will be tomorrow.
--- NOTE | 2018-09-05 16:57 | NUR ---
BG LEVEL 85 NO S/S COVERAGE REQUIRED
[2018-09-05] MEDS: MAG HYDROX/AL HYDROX/SIMETH 30 ML UDC PO PRN (17:17)
[2018-09-05] MEDS: RIVAROXABAN 10 MG TABLET PO SCH (17:22)
--- NOTE | 2018-09-05 19:18 | NUR ---
Prn Ativan med effective. Patient resting quietly
[2018-09-05] MEDS ORDERED: OLANZAPINE 5 MG TABLET PO SCH (20:00)
[2018-09-05 20:14] VITALS: BP 127/56
[2018-09-05] MEDS: ATORVASTATIN 40 MG TABLET PO SCH (21:50)
[2018-09-05] MEDS: SENNOSIDES 8.6 MG TABLET PO SCH (21:50)
--- NOTE | 2018-09-06 01:43 | NUR ---
ACCUCHECK 129 MG/DL, NO INSULIN COVERAGE AT THIS TIME. HS SNACKS GIVEN, SANDWICH AND 240 ML JUICE, CONSUMED 100%.
[2018-09-06] MEDS: BLOOD SUGAR DIAGNOSTIC 1 EACH STRIP IN SCH (07:30)
[2018-09-06 08:00] VITALS: BP 105/59
[2018-09-06 09:14] VITALS: BP 105/59
[2018-09-06] MEDS: AMLODIPINE BESYLATE 5 MG TABLET PO SCH (09:14)
[2018-09-06] MEDS: OLANZAPINE 2.5 MG TABLET PO SCH (09:15)
[2018-09-06] MEDS: TOPIRAMATE 25 MG TABLET PO SCH (09:15)
[2018-09-06] MEDS: GABAPENTIN 300 MG CAPSULE PO SCH (09:16)
[2018-09-06] MEDS: METFORMIN 500 MG TABLET PO SCH (09:20)
[2018-09-06] MEDS: MAG HYDROX/AL HYDROX/SIMETH 30 ML UDC PO PRN (09:24)
[2018-09-06] MEDS: LORAZEPAM 0.5 MG TABLET PO PRN (09:24)
--- NOTE | 2018-09-06 09:29 | NUR ---
DR. STEELE GAVE AN ORDER TO D/C PT. TO [facility] AND TO FOLLOW UP WITH PSYCH AND MEDICAL DOCTORS.
--- NOTE | 2018-09-06 10:59 | NUR ---
CARMEL SANTANA MADE AWARE OF THE DISCHARGE AND RECONCILED THE MEDS. Addendum: 09/06/18 at 1114 by NICOLE DORSEY RN PICTURES TAKEN FOR SKIN ISSUES.
--- NOTE | 2018-09-06 11:41 | NUR ---
Discharge Note: Pt was discharged to [facility]) located at [address] [place] [address]; . Pt was transported via [facility] (Trip #[id number]) in 14B at 11AM. Pt's sister, Bailey ([phone]), was notified of the placement. Upon discharge, the pt appeared to be in a euthymic mood and presented with an anxious affect. Pt stated that he felt free about leaving the hospital but was anxious about moving to this facility. Pt denied both suicidal and homicidal ideation as well as auditory and visual hallucinations. Pt will be under the care of his psychiatrist, Dr. Krishnan, located at [address] [facility] [address], [place] [address]; and his pointing machine operator, Dr. Mcwilliams, located at [address] [place] [address]; .
--- NOTE | 2018-09-06 12:00 | NUR ---
Discharge Note: MD notified. Patient alert, oriented & exhibit anxious affect r/t transferring to new facility. Denies SI/HI and A/V hallucinations. D/C wound pictures taken. Discharge instructions given. Patient verbalized understanding. Personal belongings at his side. Report given to Luis Alberto charge nurse at [facility]) located at [address] [place] [address]; . Patient was transported via [facility] at 11AM in stable condition.
[2018-09-17] MEDS ORDERED: DIVALPROEX SODIUM 250 MG TABLET.DR PO SCH (15:30)
[2018-09-17] MEDS ORDERED: TOPIRAMATE 25 MG TABLET PO SCH (15:30)
[2018-09-17] MEDS ORDERED: OLANZAPINE 2.5 MG TABLET PO SCH (17:00)
[2018-09-17] MEDS ORDERED: OLANZAPINE 10 MG TABLET PO SCH (22:00)
== END 2018-09-06 11:15 | DRG 885 ==
LOC: GPS 19:00
PROVIDERS: ADMIT Psychiatry & Neurology Psychosomatic Medicine; ATTEND Internal Medicine
DX: F25.0 Schizoaffective disorder, bipolar type (principal); E11.65 Type 2 diabetes mellitus with hyperglycemia; E78.5 Hyperlipidemia, unspecified; I10 Essential (primary) hypertension; I25.10 Atherosclerotic heart disease of native coronary artery without angina pectoris; F41.9 Anxiety disorder, unspecified; K21.9 Gastro-esophageal reflux disease without esophagitis; I71.2 Thoracic aortic aneurysm, without rupture; Z59.0 Homelessness; Z85.038 Personal history of other malignant neoplasm of large intestine; Z86.718 Personal history of other venous thrombosis and embolism; Z91.14 Patient's other noncompliance with medication regimen; N40.0 Benign prostatic hyperplasia without lower urinary tract symptoms; Z73.6 Limitation of activities due to disability; E11.43 Type 2 diabetes mellitus with diabetic autonomic (poly)neuropathy; K31.84 Gastroparesis; Z79.01 Long term (current) use of anticoagulants; F32.9 Major depressive disorder, single episode, unspecified
CPT/HCPCS: 36415; 80048-TC; 80053-TC; 80061-TC; 80076-TC; 80305; 81000-TC; 82962-TC; 83735-TC; 84100-TC; 84443-TC; 85025-TC; 87081-TC; G0480; J1815; J8597

== ENCOUNTER 2018-09-16 18:10 | Inpatient (IN) | payer MEDICARE, MEDICAID ==
[~2018-09-16] VITALS: Ht 170.2 cm; Wt 104.8 kg
--- NOTE | 2018-09-16 18:25 | NUR ---
PT BIB SELF C/O ANXIETY ATTACK, " I AM STRESS IN LIFE", -SI/HI, PT IS AAOX4, NOT IN RESPIRATORY DISTRESS, V/S STABLE, KEPT RESTED AND COMFORTABLE.
[2018-09-16 18:58] LABS: BASOPHILS # (AUTO) 0.1 /CMM (0.0-0.2); BASOPHILS % (AUTO) 0.8 % (0.0-2.0); EOSINOPHILS % (AUTO) 6.4 % (0.0-6.0); HEMATOCRIT 35 % (39-51); HEMOGLOBIN 12.1 g/dL (13.5-17.5); LYMPHOCYTES # (AUTO) 2.1 /CMM (0.8-4.8); LYMPHOCYTES % (AUTO) 20.9 % (20.0-44.0); MEAN CORPUSCULAR HGB CONC 35 g/dl (31.0-36.0); MEAN CORPUSCULAR VOLUME 87 fL (80-96); MONOCYTES # (AUTO) 0.7 /CMM (0.1-1.30); MONOCYTES % (AUTO) 7.1 % (2.0-12.0); NEUTROPHILS # (AUTO) 6.6 /CMM (1.8-8.9); NEUTROPHILS % (AUTO) 64.8 % (43.0-81.0); PLATELET COUNT (AUTO) 249 /CMM (150-450); RED BLOOD CELL COUNT(AUTO) 3.95 MIL/uL (4.5-6.0); WHITE BLOOD COUNT (AUTO) 10.1 K/uL (4.3-11.0)
[2018-09-16] MEDS ORDERED: OLANZAPINE 5 MG TABLET PO ONE (19:00)
[2018-09-16] MEDS ORDERED: OLANZAPINE 5 MG TABLET ONE (19:28)
--- NOTE | 2018-09-16 19:37 | NUR ---
URINE SPECIMEN COLLECTED AND SENT TO LAB.
[2018-09-16 19:49] LABS: APPEARANCE,URINE Clear (CLEAR); BILIRUBIN,URINE Negative (NEGATIVE); BLOOD, URINE Trace-intact Ery/uL (NEGATIVE); COLOR,URINE Yellow (YELLOW); KETONES,URINE Negative (NEGATIVE); LEUKOCYTE ESTERASE ,URINE Negative (NEGATIVE); NITRITE, URINE Negative (NEGATIVE); PH,URINE 5.5 (5.0-8.0); PROTEIN,URINE Negative (NEGATIVE); UGLUCOSE 100 MG/DL mg/dL (NEGATIVE); UROBILINOGEN,URINE 0.2 EU/dL (0.2)
[2018-09-16 19:53] LABS: CALCIUM, SERUM 8.8 mg/dL (8.5-10.1); CARBON DIOXIDE 20 mmol/L (21-32); CHLORIDE 98 mmol/L (98-107); GLUCOSE 247 mg/dL (74-106); POTASSIUM 3.5 mmol/L (3.5-5.1); SODIUM SERUM 129 mmol/L (136-145); UREA NITROGEN, BLOOD 13 mg/dL (7-18)
[2018-09-16 19:56] LABS: ALANINE AMINOTRANSFERASE 35 U/L (12-78); ALCOHOL, BLOOD < 3 mg/dL (0-0); ALKALINE PHOSPHATASE 102 U/L (46-116); ASPARTATE AMINOTRANSFERASE 22 U/L (15-37); BILIRUBIN,DIRECT 0.1 mg/dL (0.0-0.2); BILIRUBIN,TOTAL 0.9 mg/dL (0.2-1.0); TOTAL PROTEIN, SERUM 6.9 g/dL (6.4-8.2)
[2018-09-16 19:57] LABS: ACETAMINOPHEN 0 ug/ml (10-30); SALICYLATE < 2.8 mg/dL (2.8-20.0)
[2018-09-16 20:10] LABS: BACTERIA,URINE Rare /HPF (None Seen); SQUAMOUS EPITHELIAL CELL,UR Few /HPF (None Seen); WBC,URINE NONE SEEN /HPF (0-3)
[2018-09-16] MEDS ORDERED: IV NS 0.9% 1,000 ML BAG IV ONE (20:30)
--- NOTE | 2018-09-16 20:40 | NUR ---
CALLED [employer] HOUSE SUPERVISOR AND LEFT A MESSAGE
--- NOTE | 2018-09-16 20:52 | NUR ---
CONSTRUCTION CONSULTANT CLINICIAN CALLED BACK AND SAID ETA IS 60MIN
--- NOTE | 2018-09-16 21:25 | NUR ---
MARGRET CRISIS TEAM AT BEDSIDE FOR EVAL .
[2018-09-17] MEDS ORDERED: TEMAZEPAM 15 MG CAPSULE ONE (02:22)
[2018-09-17] MEDS ORDERED: TEMAZEPAM 15 MG CAPSULE PO PRN (02:30)
--- NOTE | 2018-09-17 11:57 | NUR ---
GPS BED 211-1 GIVEN
--- NOTE | 2018-09-17 12:30 | NUR ---
called GPS and spoke to Domi MCGUIRE and report given for jace going to room 211-1
--- NOTE | 2018-09-17 13:57 | NUR ---
wheeled patient via gurney accompanied by EMT in no apparent distress noted going to GPS room 211.
[2018-09-17] MEDS ORDERED: TEMAZEPAM 7.5 MG CAPSULE PO PRN (14:00)
[2018-09-17] MEDS ORDERED: ACETAMINOPHEN 325 MG TABLET PO PRN (14:00)
[2018-09-17] MEDS ORDERED: MAGNESIUM HYDROXIDE 30 ML UDC PO PRN (14:00)
[2018-09-17] MEDS ORDERED: MAG HYDROX/AL HYDROX/SIMETH 30 ML UDC PO PRN (14:00)
--- NOTE | 2018-09-17 14:10 | NUR ---
GPS RN NOTES PATIENT ARRIVED AT UNIT VIA GURNEY. PATIENT AWAKE, ALERT AND ORIENTED, VERBALLY RESPONSIVE AND RESPONDS TO VERBAL AND TACTILE STIMULI. BREATHING EVEN AND UNLABORED. NO ACUTE DISTRESS AT THIS TIME. PATIENT CALM AND RELAXED. PATIENT ADMITTED DUE TO DANGER TO SELF. WITH REPORTED PLAN OF HURTING SELF VIA CROSSING STREET INTO TRAFFIC. DR. SMITH MADE AWARE OF PATIENT ARRIVAL. YARA MAYS DNP MADE AWARE OF PATIENT ARRIVAL. PATIENT ORIENTED TO UNIT, ROOM, STAFF, PLAN OF CARE AND VERBALIZED UNDERSTANDING. WILL CONTINUE TO MONITOR. BED LOCKED AND IN LOW POSITION. BILATERAL UPPER SIDE RAILS UP AND LOCKED
[2018-09-17] MEDS ORDERED: TOPI50TA PO (14:20)
[2018-09-17] MEDS ORDERED: LORA-258 PO (14:20)
[2018-09-17] MEDS ORDERED: TEMA15CA5 PO (14:21)
[2018-09-17 16:00] VITALS: BP 147/72
[2018-09-17] MEDS: OLANZAPINE 2.5 MG TABLET PO SCH (17:10)
[2018-09-17] MEDS ORDERED: diphenhydrAMINE HCL 25 MG CAPSULE PO PRN (17:30)
[2018-09-17] MEDS ORDERED: DEXTROSE 50%-WATER 50 ML DISP.SYRIN IV PRN (17:30)
[2018-09-17] MEDS ORDERED: METOCLOPRAMIDE HCL 10 MG TABLET PO PRN (17:30)
[2018-09-17] MEDS: INSULIN REGULAR, HUMAN 100 UNIT/ML 3 ML VIAL SQ PRN ×2 (17:48→22:03)
[2018-09-17] MEDS: BLOOD SUGAR DIAGNOSTIC 1 EACH STRIP IN SCH ×2 (17:48→22:01)
[2018-09-17] MEDS: TRAMADOL HCL 50 MG TABLET PO PRN (17:50)
[2018-09-17] MEDS: PANTOPRAZOLE 40 MG TABLET.DR PO SCH (17:50)
[2018-09-17] MEDS: RIVAROXABAN 10 MG TABLET PO SCH (17:51)
--- NOTE | 2018-09-17 17:51 | NUR ---
GPS RN NOTES PATIENT WITH FSBS RESULT OF 138. PATIENT REFUSED TO HAVE INSULIN. VERBALIZED HE DOESNT NEED IT. RISKS AND BENEFITS EXPLAINED BUT TO NO AVAIL, PATIENT STRONGLY REFUSED. WILL CONTINUE TO MONITOR
[2018-09-17 20:13] VITALS: BP 127/58
[2018-09-17] MEDS: TOPIRAMATE 25 MG TABLET PO SCH (21:09)
[2018-09-17] MEDS: DIVALPROEX SODIUM 250 MG TABLET.DR PO SCH (21:09)
[2018-09-17] MEDS: OLANZAPINE 10 MG TABLET PO SCH (21:21)
[2018-09-17] MEDS: SENNOSIDES 8.6 MG TABLET PO SCH (21:21)
[2018-09-17] MEDS ORDERED: ATORVASTATIN 40 MG TABLET PO SCH (22:00)
--- NOTE | 2018-09-17 22:04 | NUR ---
GPS RN NOTES : PATIENT WITH BS RESULT OF 132. PATIENT REFUSED TO HAVE INSULIN. ENCOURAGED, PT. STATES I DONT WANT IT, RISKS AND BENEFITS EXPLAINED BUT STILL REFUSED, PATIENT STRONGLY REFUSED. WILL CONTINUE TO MONITOR
[2018-09-17 22:15] VITALS: BP 118/63
[2018-09-18 07:36] LABS: ALBUMIN 3.8 g/dL (3.4-5.0); BILIRUBIN,TOTAL 0.7 mg/dL (0.2-1.0); CALCIUM, SERUM 9.5 mg/dL (8.5-10.1); POTASSIUM 4.2 mmol/L (3.5-5.1); TOTAL PROTEIN, SERUM 6.9 g/dL (6.4-8.2)
[2018-09-18 08:00] VITALS: BP 150/93
[2018-09-18] MEDS: BLOOD SUGAR DIAGNOSTIC 1 EACH STRIP IN SCH ×4 (08:08→21:10)
[2018-09-18] MEDS: DIVALPROEX SODIUM 250 MG TABLET.DR PO SCH ×2 (08:09→21:11)
[2018-09-18] MEDS: TOPIRAMATE 25 MG TABLET PO SCH ×2 (08:10→21:11)
[2018-09-18] MEDS: PANTOPRAZOLE 40 MG TABLET.DR PO SCH (08:10)
[2018-09-18] MEDS: OLANZAPINE 2.5 MG TABLET PO SCH ×2 (08:10→16:51)
[2018-09-18] MEDS: AMLODIPINE BESYLATE 5 MG TABLET PO SCH (08:12)
[2018-09-18] MEDS: GABAPENTIN 300 MG CAPSULE PO SCH ×3 (08:13→16:51)
[2018-09-18] MEDS: METFORMIN 500 MG TABLET PO SCH ×2 (08:13→16:51)
[2018-09-18] MEDS: clonazePAM 0.5 MG TABLET PO PRN (11:23)
--- NOTE | 2018-09-18 11:24 | NUR ---
GPS RN NOTE: PT REQUEST KLONOPIN 0.5 MG PO PRN , MEDICATIONS GIVEN PER ORDER FOR ANXIETY.
[2018-09-18] MEDS: TRAMADOL HCL 50 MG TABLET PO PRN (14:17)
--- NOTE | 2018-09-18 15:34 | NUR ---
RN NOTE: PATIENT WAS COMPLAINING OF GENERALIZED PAIN RATING 6/10. TRAMADOL 50MG WAS GIVEN ALONG WITH NON-PHARMACOLOGICAL INTERVENTIONS INCLUDING REST.
[2018-09-18 16:00] VITALS: BP 109/67
[2018-09-18] MEDS: RIVAROXABAN 10 MG TABLET PO SCH (16:50)
--- NOTE | 2018-09-18 19:30 | NUR ---
RN/GPS NOTES: RECEIVED PT. COMING OUT THE BATHROOM. ALERT AND VERBALLY RESPONSIVE. PT. IS DISPLAYING NO S/S OF APPARENT DISTRESS AT THIS TIME. PT. BREATHING IS UNLABORED W/ EQUAL RISE AND FALL OF THE CHEST. CONTINENT OF B/B. AMBULATORY W/ STEADY GAIT. WILL CONTINUE TO MONITOR.
[2018-09-18 19:58] VITALS: BP 100/40
[2018-09-18] MEDS ORDERED: BLOOD SUGAR DIAGNOSTIC 1 EACH STRIP IN SCH (21:00)
[2018-09-18] MEDS: SENNOSIDES 8.6 MG TABLET PO SCH (21:11)
[2018-09-18] MEDS: ATORVASTATIN 40 MG TABLET PO SCH (21:11)
[2018-09-18] MEDS: OLANZAPINE 10 MG TABLET PO SCH (21:15)
[2018-09-19] MEDS: clonazePAM 0.5 MG TABLET PO PRN ×2 (06:39→18:47)
[2018-09-19 08:00] VITALS: BP 136/74
[2018-09-19] MEDS: PANTOPRAZOLE 40 MG TABLET.DR PO SCH (08:34)
[2018-09-19] MEDS: OLANZAPINE 2.5 MG TABLET PO SCH ×2 (08:35→16:29)
[2018-09-19] MEDS: GABAPENTIN 300 MG CAPSULE PO SCH ×3 (08:35→16:29)
[2018-09-19] MEDS: DIVALPROEX SODIUM 250 MG TABLET.DR PO SCH ×2 (08:35→20:43)
[2018-09-19] MEDS: METFORMIN 500 MG TABLET PO SCH ×2 (08:35→16:30)
[2018-09-19] MEDS: TOPIRAMATE 25 MG TABLET PO SCH ×2 (08:36→20:43)
[2018-09-19] MEDS: AMLODIPINE BESYLATE 5 MG TABLET PO SCH (08:36)
[2018-09-19] MEDS: BLOOD SUGAR DIAGNOSTIC 1 EACH STRIP IN SCH ×4 (08:43→21:29)
[2018-09-19] MEDS: INSULIN REGULAR, HUMAN 100 UNIT/ML 3 ML VIAL SQ PRN ×4 (09:14→21:30)
--- NOTE | 2018-09-19 11:15 | NUR ---
Psychosocial Note: I, Cherylnadine Shah PHARMACY PICKING TECH, attest to the patients previous psychosocial information dated on 08/29/18. Update On Events leading to Admission and Discharge Plan: Pt has returned to the geropsychiatric unit of the hospital within two weeks of his previous discharge date (09/06/18). Pt is on a 5150 hold for danger to himself. Per hold, the pt presented at the ER reporting severe anxiety with suicidal ideation. Upon face to face interview, the pt was anxious, appears fearful, depressed, his affect was flat. Pt stated, I have a very high anxiety level and I am feeling suicidal and having thoughts to walk out in the street into trafficI do not feel safe right now. The pt appeared to be oriented x4 (time, place, self and situation). The pt appeared to be in a dysphoric mood and presented as irritable and agitated. Pt appeared to be ambulatory and appeared to have a steady gait. Pt appeared to be well groomed and appropriately dressed. SW will work with the pt, the pts family and the MD regarding appropriate discharge planning. SW will form a safe and proper discharge.
--- NOTE | 2018-09-19 12:19 | NUR ---
LUISA faxed a referral to [facility] with attention to Adi and CJ to the fax number: [phone].
[2018-09-19] MEDS: HYDROCODONE/APAP 5/325MG 1 EACH TABLET PO PRN (13:39)
--- NOTE | 2018-09-19 13:40 | NUR ---
GPS RN NOTE: PT C/O GENERALIZED PAIN 02/05 NORCO 5/325 PO PRN GIVEN PER ORDER. WILL CONTINUE MONITORING.
--- NOTE | 2018-09-19 15:56 | NUR ---
Group Note: SW encouraged the pt to participate in group therapy but the pt stated that he did not want to because he would rather stay in his room and relax.
[2018-09-19] MEDS: RIVAROXABAN 10 MG TABLET PO SCH (16:30)
--- NOTE | 2018-09-19 18:49 | NUR ---
GPS RN NOTE: PT REQUEST KLONOPIN 0.5 MG PO PRN , MEDICATIONS GIVEN PER ORDER FOR ANXIETY.
[2018-09-19 20:00] VITALS: BP 115/62
[2018-09-19] MEDS: SENNOSIDES 8.6 MG TABLET PO SCH (21:29)
[2018-09-19] MEDS: OLANZAPINE 10 MG TABLET PO SCH (21:29)
[2018-09-19] MEDS: ATORVASTATIN 40 MG TABLET PO SCH (21:29)
--- NOTE | 2018-09-19 21:31 | NUR ---
GPS RN NOTES : PATIENT WITH BS RESULT OF 163. PATIENT REFUSED TO HAVE INSULIN. ENCOURAGED, PT. STATES I DONT WANT IT, RISKS AND BENEFITS EXPLAINED, BUT STILL REFUSED, PATIENT STRONGLY REFUSED. WILL CONTINUE TO MONITOR.
[2018-09-20] MEDS: clonazePAM 0.5 MG TABLET PO PRN (06:36)
[2018-09-20] MEDS: BLOOD SUGAR DIAGNOSTIC 1 EACH STRIP IN SCH ×4 (07:55→20:39)
[2018-09-20] MEDS: PANTOPRAZOLE 40 MG TABLET.DR PO SCH (07:55)
[2018-09-20 08:00] VITALS: BP 116/68
[2018-09-20] MEDS: GABAPENTIN 300 MG CAPSULE PO SCH ×3 (08:41→16:55)
[2018-09-20] MEDS: AMLODIPINE BESYLATE 5 MG TABLET PO SCH (08:41)
[2018-09-20] MEDS: TOPIRAMATE 25 MG TABLET PO SCH ×2 (08:41→20:36)
[2018-09-20] MEDS: METFORMIN 500 MG TABLET PO SCH ×2 (08:41→16:55)
[2018-09-20] MEDS: OLANZAPINE 2.5 MG TABLET PO SCH ×2 (08:41→16:56)
[2018-09-20] MEDS: DIVALPROEX SODIUM 250 MG TABLET.DR PO SCH ×3 (09:01→16:56)
--- NOTE | 2018-09-20 09:29 | NUR ---
GPS/RN-NOTES PATIENT BS WAS 187 MG/DL,REFUSED INSULIN COVERAGE OF 3 UNITS. EXPLAINED RISK AND BENEFITS BUT PATIENT STATED" I DON'T NEED INSULIN". OFFERED X3.
[2018-09-20] MEDS: HYDROCODONE/APAP 5/325MG 1 EACH TABLET PO PRN (10:48)
--- NOTE | 2018-09-20 10:49 | NUR ---
GPS/RN-NOTES PATIENT C/O 03/07 LEFT ANKLE AND REQUESTING FOR NORCO. NORCO 5/325MG 1 TAB. P.O GIVEN PRN ORDER. WILL CONT. MONITORING FOR SAFETY .
--- NOTE | 2018-09-20 11:50 | NUR ---
GPS/RN-NOTES PATIENT PARTICIPATING IN THE ACTIVITY GROUP, CALM.NO ACUTE DISTRESS NOTED.DENIES ANY PAIN OR DISCOMFORT.
[2018-09-20 16:08] VITALS: BP 132/68
[2018-09-20] MEDS: RIVAROXABAN 10 MG TABLET PO SCH (16:57)
[2018-09-20 20:00] VITALS: BP 126/58
[2018-09-20] MEDS: OLANZAPINE 10 MG TABLET PO SCH (21:11)
[2018-09-20] MEDS: ATORVASTATIN 40 MG TABLET PO SCH (21:12)
[2018-09-20] MEDS: SENNOSIDES 8.6 MG TABLET PO SCH (21:12)
[2018-09-21] MEDS: clonazePAM 0.5 MG TABLET PO PRN (06:23)
[2018-09-21] MEDS: BLOOD SUGAR DIAGNOSTIC 1 EACH STRIP IN SCH ×4 (07:31→21:18)
[2018-09-21 08:00] VITALS: BP 139/68
[2018-09-21] MEDS: GABAPENTIN 300 MG CAPSULE PO SCH ×3 (08:15→16:04)
[2018-09-21] MEDS: PANTOPRAZOLE 40 MG TABLET.DR PO SCH (08:15)
[2018-09-21] MEDS: DIVALPROEX SODIUM 250 MG TABLET.DR PO SCH ×3 (08:15→16:04)
[2018-09-21] MEDS: METFORMIN 500 MG TABLET PO SCH ×2 (08:15→16:06)
[2018-09-21] MEDS: OLANZAPINE 2.5 MG TABLET PO SCH ×2 (08:15→17:06)
[2018-09-21] MEDS: TOPIRAMATE 25 MG TABLET PO SCH ×2 (08:15→21:19)
[2018-09-21] MEDS: BENAZEPRIL HCL 10 MG TABLET PO SCH (08:19)
[2018-09-21 16:00] VITALS: BP 119/74
[2018-09-21] MEDS: HYDROCODONE/APAP 10/325MG 1 EA TABLET PO PRN (16:07)
--- NOTE | 2018-09-21 16:09 | NUR ---
ZUNILDA ([phone]) contacted the SW and stated that the pt was accepted to their facility.
[2018-09-21] MEDS: RIVAROXABAN 10 MG TABLET PO SCH (17:06)
--- NOTE | 2018-09-21 19:30 | NUR ---
GPS RN NOTE, RECEIVED PATIENT AWAKE AND IN ROOM NO S/S OR COMPLAINTS OF PAIN AT THIS TIME. PATIENT IS DISPLAYING NO S/S OF APPARENT DISTRESS AT THIS TIME. PATIENT BREATHING IS UNLABORED WITH EQUAL RISE AND FALL OF THE CHEST. PATIENT IS ALERT AND ORIENTED X 1-2 ON ROOM AIR WITH A SPO2 OF 96%. PATIENT IS MED COMPLIANT, ANXIOUS, DEPRESSED, COOPERATIVE, AND NEEDS REORIENTATION. PATIENT DENIES SUICIDE AND HOMICIDAL IDEATIONS AT THIS TIME. PATIENT ASSISTED WITH TURNING AND REPOSITIONING Q2HR AND PRN FOR COMFORT AND CIRCULATION. PATIENT HAS NO NEEDS AT THIS TIME. PATIENT EDUCATED ON THE USE OF THE CALL MCK[employer]. PATIENT BED SIDE RAILS ARE UP X 2 FOR SAFETY, BED IS LOCKED AND LOW. WILL CONTINUE TO MONITOR AND MAINTAIN SAFETY Q15 MIN WITH THE HELP OF STAFF.
[2018-09-21 20:00] VITALS: BP 116/48
--- NOTE | 2018-09-21 21:15 | NUR ---
GPS RN NOTE, PERFORMED ACCU CHECK ON PATIENT WITH A BLOOD SUGAR RESULT OF 102. GAVE 0 UNITS OF REGULAR INSULIN PER SLIDING SCALE. WILL CONTINUE TO MONITOR THIS PATIENT.
[2018-09-21] MEDS: OLANZAPINE 10 MG TABLET PO SCH (21:19)
[2018-09-21] MEDS: ATORVASTATIN 40 MG TABLET PO SCH (21:19)
[2018-09-21] MEDS: SENNOSIDES 8.6 MG TABLET PO SCH (21:22)
[2018-09-22 07:20] LABS: CALCIUM, SERUM 9.2 mg/dL (8.5-10.1); CREATININE 1.2 mg/dL (0.6-1.3); POTASSIUM 4.4 mmol/L (3.5-5.1)
[2018-09-22] MEDS ORDERED: FIXODENT 1 EA TUBE MM PRN (07:30)
[2018-09-22] MEDS: clonazePAM 0.5 MG TABLET PO PRN (07:55)
[2018-09-22] MEDS: BLOOD SUGAR DIAGNOSTIC 1 EACH STRIP IN SCH ×4 (07:55→21:14)
[2018-09-22 08:00] VITALS: BP 116/78
[2018-09-22] MEDS: DIVALPROEX SODIUM 250 MG TABLET.DR PO SCH ×3 (08:36→18:12)
[2018-09-22] MEDS: PANTOPRAZOLE 40 MG TABLET.DR PO SCH (08:37)
[2018-09-22] MEDS: METFORMIN 500 MG TABLET PO SCH ×2 (08:37→18:12)
[2018-09-22] MEDS: GABAPENTIN 300 MG CAPSULE PO SCH ×3 (08:37→18:13)
[2018-09-22] MEDS: TOPIRAMATE 25 MG TABLET PO SCH ×2 (08:37→21:14)
[2018-09-22] MEDS: BENAZEPRIL HCL 10 MG TABLET PO SCH (08:37)
[2018-09-22] MEDS: OLANZAPINE 2.5 MG TABLET PO SCH ×2 (08:39→18:13)
[2018-09-22] MEDS: HYDROCODONE/APAP 10/325MG 1 EA TABLET PO PRN ×2 (11:13→19:36)
[2018-09-22 16:00] VITALS: BP 130/69
[2018-09-22] MEDS: RIVAROXABAN 10 MG TABLET PO SCH (18:15)
[2018-09-22 20:40] VITALS: BP 122/71
[2018-09-22] MEDS: ATORVASTATIN 40 MG TABLET PO SCH (21:14)
[2018-09-22] MEDS: SENNOSIDES 8.6 MG TABLET PO SCH (21:14)
[2018-09-22] MEDS: OLANZAPINE 10 MG TABLET PO SCH (21:15)
[2018-09-23] MEDS: BLOOD SUGAR DIAGNOSTIC 1 EACH STRIP IN SCH ×4 (07:59→21:20)
[2018-09-23 08:00] VITALS: BP 160/76
[2018-09-23] MEDS: OLANZAPINE 2.5 MG TABLET PO SCH ×2 (08:39→17:34)
[2018-09-23] MEDS: METFORMIN 500 MG TABLET PO SCH ×2 (08:39→17:34)
[2018-09-23] MEDS: GABAPENTIN 300 MG CAPSULE PO SCH ×3 (08:39→17:34)
[2018-09-23] MEDS: PANTOPRAZOLE 40 MG TABLET.DR PO SCH (08:39)
[2018-09-23] MEDS: DIVALPROEX SODIUM 250 MG TABLET.DR PO SCH ×2 (08:39→17:34)
[2018-09-23] MEDS: BENAZEPRIL HCL 10 MG TABLET PO SCH (08:39)
[2018-09-23] MEDS: clonazePAM 0.5 MG TABLET PO PRN ×2 (08:39→14:31)
[2018-09-23] MEDS: TOPIRAMATE 25 MG TABLET PO SCH ×2 (08:54→20:31)
[2018-09-23 16:00] VITALS: BP 156/72
[2018-09-23] MEDS: RIVAROXABAN 10 MG TABLET PO SCH (17:26)
--- NOTE | 2018-09-23 17:37 | NUR ---
GPS/RN PT REFUSED INSULIN COVERAGE OFFERED X3
[2018-09-23 19:39] VITALS: BP 144/82
[2018-09-23] MEDS: OLANZAPINE 10 MG TABLET PO SCH (21:19)
[2018-09-23] MEDS: SENNOSIDES 8.6 MG TABLET PO SCH (21:19)
[2018-09-23] MEDS: INSULIN REGULAR, HUMAN 100 UNIT/ML 3 ML VIAL SQ PRN (21:20)
[2018-09-23] MEDS: ATORVASTATIN 40 MG TABLET PO SCH (21:20)
--- NOTE | 2018-09-23 21:21 | NUR ---
GPS RN NOTES : PATIENT WITH BS RESULT OF 176. PATIENT REFUSED TO HAVE INSULIN. ENCOURAGED, PT. STATES I DONT WANT IT, RISKS AND BENEFITS EXPLAINED, BUT STILL REFUSED, PATIENT STRONGLY REFUSED. WILL CONTINUE TO MONITOR.
[2018-09-24] MEDS: clonazePAM 0.5 MG TABLET PO PRN (06:51)
[2018-09-24] MEDS: BLOOD SUGAR DIAGNOSTIC 1 EACH STRIP IN SCH ×2 (07:46→12:22)
[2018-09-24 08:00] VITALS: BP 139/77
[2018-09-24] MEDS: OLANZAPINE 2.5 MG TABLET PO SCH (08:25)
[2018-09-24] MEDS: TOPIRAMATE 25 MG TABLET PO SCH (08:25)
[2018-09-24] MEDS: PANTOPRAZOLE 40 MG TABLET.DR PO SCH (08:25)
[2018-09-24 08:26] VITALS: BP 139/77
[2018-09-24] MEDS: BENAZEPRIL HCL 10 MG TABLET PO SCH (08:26)
[2018-09-24] MEDS: GABAPENTIN 300 MG CAPSULE PO SCH ×2 (08:26→12:44)
[2018-09-24] MEDS: METFORMIN 500 MG TABLET PO SCH (08:26)
[2018-09-24] MEDS: DIVALPROEX SODIUM 250 MG TABLET.DR PO SCH (08:27)
--- NOTE | 2018-09-24 10:20 | NUR ---
LUISA faxed a clearance to [facility] to the fax number: [phone].
--- NOTE | 2018-09-24 15:00 | NUR ---
GPS/RN-NOTES PATIENT DISCHARGE TO HOME TODAY. DR. SMITH AND [employer] MASTERS MADE AWARE WITH ORDERS.REPORT WAS GIVEN TO MASOOD( DEBT COLLECTOR) . PATIENT DID NOT VERBALIZE SI/HI DENIES VISUAL AUDITORY HALLUCINATIONS AT THE TIME OF DISCHARGE. ALL DISCHARGE MEDICATIONS WAS REVIEWED WITH PATIENT WITH UNDERSTANDING.PATIENT LEFT THE UNIT IN STABLE CONDITION ALERT ORIENTED X3 AMBULATORY WITH STEADY GAIT WITH ALL BELONGINGS. PATIENT WAS P[facility]Y AMBULANCE VIA [facility] WITH TWO STAFF ASSIST.
--- NOTE | 2018-09-24 16:13 | NUR ---
Discharge Note: Pt was discharged to [facility] ([facility]) located at [address] [place] [address] ([phone]). Pt was transported via [facility] (Trip #[id number]) at 2:30PM. Upon discharge, the pt appeared to be in a euthymic mood and presented with a calm affect. Pt stated that he was content about being discharged because he wants to be independent. Pt denied both suicidal and homicidal ideation as well as auditory and visual hallucinations. Pt signed the homeless waiver upon discharge and was provided with homeless resources as well. Pt will be under the care of his psychiatrist, Dr. Rodriguez, [place] at [address] [place] [address]; and his cable splicer assistant, Dr. Cooper, located at [address] [place] [address]; .
== END 2018-09-24 15:00 | DRG 885 ==
LOC: ER 18:16 → GPS 09-17 13:13
PROVIDERS: ADMIT Psychiatry & Neurology Psychiatry; ATTEND Nurse Practitioner Acute Care
DX: F31.60 Bipolar disorder, current episode mixed, unspecified (principal); E11.65 Type 2 diabetes mellitus with hyperglycemia; E87.1 Hypo-osmolality and hyponatremia; R45.851 Suicidal ideations; N40.0 Benign prostatic hyperplasia without lower urinary tract symptoms; K21.9 Gastro-esophageal reflux disease without esophagitis; I25.10 Atherosclerotic heart disease of native coronary artery without angina pectoris; F29 Unspecified psychosis not due to a substance or known physiological condition; I10 Essential (primary) hypertension; E78.5 Hyperlipidemia, unspecified; Z86.718 Personal history of other venous thrombosis and embolism; Z79.01 Long term (current) use of anticoagulants; E66.01 Morbid (severe) obesity due to excess calories; Z68.36 Body mass index [BMI] 36.0-36.9, adult; Z59.0 Homelessness; F41.9 Anxiety disorder, unspecified; F25.0 Schizoaffective disorder, bipolar type
CPT/HCPCS: 36415; 80048-TC; 80053-TC; 80061-TC; 80076-TC; 80164-TC; 80305; 81000-TC; 82962-TC; 85025-TC; 87081-TC; G0480; J1815; J7030